=== PATIENT | male | born 1945 | race Caucasian/White ===

== ENCOUNTER 2016-09-08 10:54 | Outpatient (CLI) | payer MEDICARE, OTHER ==
[~2016-09-08] VITALS: Ht 172.7 cm; Wt 93.2 kg
--- NOTE | ~2016-09-08 | HEMODYNAMI ---
PATIENT:STACY QUESADA MEDICAL RECORD: [id number] : 47 LOCATION:[facility] ADMISSION DATE: 09/08/16 Generatedon:09/08/201614:25 Patient name: STACY QUESADA Patient #: [id number] SSN: DO B: 1945 Date of study: 09/08/2016 Page: Of Hemodynamic Procedure Report Patient Data Patient Demographics Procedure consent was obtained First Name: STACY Gender: Male Last Name: SANGITA : 1945 Patient #: [id number] Age: 70 year(s) Race: Unknown Additional ID: [id number] Contact details [address]: [address] [place] [address] State: [place] City: [place] Zip code: [address] Past Medical History Allergies Allergen Reaction Date Comments Reported Penicillins 09/08/2016 Admission Admission Data Admission Date: 09/08/2016 Admission Time: 10:54 Lab Results Lab Result Date: 09/08/2016 Lab Result Time: 0:00 Biochemistry Name Units Result Min Max BUN mg/dl 15 --(--*-)-- 7 18 Creatinine mg/dl 0.9 --(-*--)-- 0.6 1.3 CBC Name Units Result Min Max Hemoglobin g/dl 15.4 --(-*--)-- 13.5 17.5 Procedure Procedure Types Cath Procedure Diagnostic Procedure LHC [facility] w/Coronaries Miscellaneous Procedures Moderate Sedation up to 30 minutes Procedure Description Procedure Date Procedure Date: 09/08/2016 Procedure Start Time: 13:59 Procedure End Time: 14:23 Procedure Staff Name Function Víctor Gorman RT Scrub Derik Garcia RT Monitor Kelton Goodman MD Performing Physician Marisela Bowden RN Nurse Chago Ribeiro RT Monitor Procedure Data Cath Procedure Fluoroscopy Diagnostic fluoroscopy Total fluoroscopy Time: 6.8 time: 6.8 min min Diagnostic fluoroscopy Total fluoroscopy dose: 708 dose: 708 mGy mGy Contrast Material Contrast Material Type Amount (ml) Isovue 300 91 Entry Location Entry Primary Successful Side Size Upsize Upsize Entry Closure Alatorre ccessful Closure Location (Fr) 1 (Fr) 2 (Fr) Remarks Device Remarks Radial Right 6 Fr Mechanical artery Short Compression Estimated blood loss: 5 ml Diagnostic catheters Device Type Used For End Catheter Placement Terumo 5Fr Emory 110cm Procedure catheter Terumo 5Fr Ashley 110cm Procedure catheter Procedure Complications No complications Procedure Medications Medication Administration Route Dosage Oxygen NC 3 l/min Heparin Flush Bag added to field 2 bags (1000units/500ml NS) Lidocaine 2% added to field 20 Radial Cocktail added to field 1 syringe (Verapomil 2mg/Nitro 400mcg/Heparin 1500units) Versed I.V. 1 mg Fentanyl I.V. 50 mcg Radial Cocktail I.A. 1 syringe (Verapomil 2mg/Nitro 400mcg/Heparin 1500units) Versed I.V. 1 mg Fentanyl I.V. 50 mcg Versed I.V. 1 mg Fentanyl I.V. 50 mcg Hemodynamics Rest HGB: 15.4 (g/dl) Heart Rate: 64 (bpm) Pressure Samples Time Site Value (mmHg) Purpose Heart Use Rate(bpm) 14:06 LV 133/5,22 Snapshot 66 14:07 LV 113/14,14 Pullback 65 14:07 AO 107/70(87) Pullback 65 Gradients Valve Time Site 1 Site 2 Mean SEP/DFP Peak To Heart Use (mmHg) (sec/min) Peak Rate (mmHg) (bpm) Aortic 14:07 LV AO 10 14 6 65 113/14,14 107/70(87) Calculations Valve P-P Mean Valve Index Valve Source Name Gradient Area Flow (cm2) Aortic 6 10 6 10 Snapshots Pre Cath Intra NCS Post Cath Vital Signs Time Heart Resp SPO2 etCO2 BT2kvkp NIBP (mmHg) Rhythm Pain Sedatio n Rate (ipm) (%) (mmHg) (mmHg) Status Level (bpm) 13:48:36 58 26 100 0 0 141/87(107) NSR 0 (11) 10(A) , No pain 13:53:25 62 19 100 0 0 163/98(140) NSR 0 (11) 10(A) , No pain 13:57:45 60 15 100 0 0 153/100(137) NSR 0 (11) 10(A) , No pain 14:02:05 65 16 98 0 0 116/82(95) NSR 0 (11) 10(A) , No pain 14:06:13 56 18 96 0 0 108/77(84) NSR 0 (11) 9(A) , No pain 14:11:08 64 18 96 0 0 126/80(102) NSR 0 (11) 9(A) , No pain 14:15:18 67 19 98 0 0 137/78(94) NSR 0 (11) 9(A) , No pain 14:19:27 66 19 98 0 0 141/85(124) NSR 0 (11) 9(A) , No pain Medications Time Medication Route Dose Verified Delivered Reason Notes Effectiveness by by 13:47:32 Oxygen NC 3 l/min Kelton Marisela Per [facility] Ricci Bowden RN physician 13:51:04 Heparin Flush added 2 bags Kelton [facility] (1000[facility]/500ml field MD MENDOZA NS) 13:51:12 Lidocaine 2% added 20ml Kelton Martinezory used for to vial Rex Rex procedure field MD MENDOZA 13:51:19 Radial Cocktail added 1 Kelton Kelton used for (Verapomil to syringe [place] procedure 2mg/Nitro field MD MENDOZA 400mcg/Hepari 13:58:24 Versed I.V. 1 mg Kelton Marisela for sedation [facility]. Ricci Bowden RN, MD 13:58:31 Fentanyl I.V. 50 mcg Kelton Marisela for sedation St. Ricci Bowden RN, MD 14:01:28 Radial Cocktail I.A. 1 Kelton Kelton for (Verapomil syringe [place] Rex vasodilation 2mg/Taty MENDOZA MD 400mcg/Hepari 14:01:45 Versed I.V. 1 mg Kelton Marisela for sedation [facility]. Ricci Bowden RN, MD 14:01:55 Fentanyl I.V. 50 mcg Kelton Marisela for sedation [facility]. Ricci Bowden RN, MD 14:03:18 Versed I.V. 1 mg Kelton Marisela for sedation [facility]. Ricci Bowden RN, MD 14:03:26 Fentanyl I.V. 50 mcg Kelton Marisela for sedation [facility]. Ricci Bowden RN, MD Procedure Log Time Note 13:33:35 Víctor Gorman RT(R) (CV) sent for patient. Start room use. 13:34:16 Time tracking: Regular hours 13:34:23 Plan of Care:Hemodynamics will remain stable., Cardiac rhythm will remain stable., Comfort level will be maintained., Respiratory function will remain adequate., Patient/ family verbilizes understanding of procedure., Procedure tolerated without complication., Recovers from procedure without complications.. 13:41:15 Patient received from Pre/Post Procedure Room to CCL 1 Alert and oriented. Tansferred to table in Supine position. 13:41:17 Warm blankets applied, and christina hugger turned on for patient comfort. 13:41:18 Correct patient and procedure confirmed by team. 13:41:21 Signed procedure consent form obtained from patient. 13:41:26 ECG and BP/O2 sat monitors applied to patient. 13:47:21 Vital chart was started 13:47:32 Oxygen 3 l/min NC was administered by Marisela Bowden RN; Per physician; 13:51:04 Heparin Flush Bag (1000units/500ml NS) 2 bags added to field was administered by Kelton Goodman MD; used for procedure; 13:51:12 Lidocaine 2% 20ml vial added to field was administered by Kelton Goodman MD; used for procedure; 13:51:19 Radial Cocktail (Verapomil 2mg/Nitro 400mcg/Heparin 1500units) 1 syringe added to field was administered by Kelton Goodman MD; used for procedure; 13:52:56 Baseline sample Acquired. 13:53:00 Rhythm: sinus rhythm 13:53:02 Full Disclosure recording started 13:53:23 H&P Date Dictated: 08/31/2016 Within 30 days and on chart., H&P Addendum completed by physician on day of procedure. (MUST COMPLETE FOR ALL OUTPATIENTS). 13:53:42 Pre-procedure instructions explained to patient. 13:53:44 Pre-op teaching completed and patient verbalized understanding. 13:53:47 Family in patients room. 13:53:50 Patient NPO since Breakfast. 13:53:58 Patient allergic to Penicillins 13:54:02 Is the patient allergic to Iodine/contrast media? No. 13:54:05 Is patient on blood thinner?Yes 13:54:08 ACC The patient was administered the following blood thiners within the last 24 hours: ACCPlavix 13:54:12 Patient diabetic? No. 13:54:17 ----Pre-sedation anethsthesia assessment.---- 13:54:23 Previous problem with sedation/anesthesia? No ? 13:54:25 Snore? Yes 13:54:26 Sleep apnea? Yes 13:54:28 Deviated septum? No 13:54:29 Opens mouth fully? Yes 13:54:31 Sticks out tongue? Yes 13:54:34 Airway obstruction? No ? 13:54:41 Dentures? No ? 13:54:46 Pre procedure: right dorsailis pedis pulse 2+ Normal; easily identifiable; not easily obliterated 13:54:51 Modified Gutierrez's test Ulnar < 7 seconds 13:55:02 Patient pain scale 3/10 ?. 13:55:15 IV patent on arrival in left hand with 0.9% NaCl at [facility]. 13:55:55 Lab Result : Hemoglobin 15.4 g/dl 13:55:55 Lab Result : Creatinine 0.9 mg/dl 13:55:55 Lab Result : BUN 15 mg/dl 13:56:00 Lab results completed and on chart. 13:56:06 Right Radial & Right Groin area was prepped with chlora-prep and draped in sterile fashion 13:56:09 Alarms reviewed by R. N. 13:56:10 Sharps counted by scrub and verified by R.N. 13:56:55 Use device set Radial Dx 13:56:57 Acist Syringe opened to sterile field. 13:56:58 Medline Cath Pack opened to sterile field. 13:56:59 Terumo 6Fr Slender Glidesheath opened to sterile field. 13:56:59 Bag Decanter opened to sterile field. 13:57:00 St Melquiades 260cm J .035 wire opened to sterile field. 13:57:01 Acist Manifold opened to sterile field. 13:57:01 Acist Hand Control opened to sterile field. 13:57:02 Tegaderm 4 x 4 opened to sterile field. 13:57:03 MBrace Wrist Support opened to sterile field. 13:58:05 --------ALL STOP TIME OUT------ 13:58:05 Physician arrived 13:58:06 Final Timeout: patient, procedure, and site verified with staff and physician. All members of the team are in agreement. 13:58:09 Right Radial & Right Groin site verified by team. 13:58:17 Physical assessment completed. ASA score P 2 - A patient with mild systemic disease as per Kelton Goodman MD. 13:58:22 Sedation plan: IV Moderate Sedation Versed, Fentanyl 13:58:24 Versed 1 mg I.V. was administered by Marisela Bowden RN; for sedation; 13:58:31 Fentanyl 50 mcg I.V. was administered by Marisela Bowden RN; for sedation; 13:58:41 Procedure started. 13:59:49 Local anesthetic to right radial artery with Lidocaine 2% by eKlton Goodman MD.INITIAL ACCESS ONLY 14:01:08 A 6 Fr Short sheath was inserted into the Right Radial artery 14:01:28 Radial Cocktail (Verapomil 2mg/Nitro 400mcg/Heparin 1500units) 1 syringe I.A. was administered by Kelton Goodman MD; for vasodilation; 14:01:45 Versed 1 mg I.V. was administered by Marisela Bowden RN; for sedation; 14:01:48 A Terumo 5Fr Emory 110cm catheter was advanced over the wire and used for Procedure. 14:01:55 Fentanyl 50 mcg I.V. was administered by Marisela Bowden RN; for sedation; 14:02:42 Zero performed for pressure channel P1 14:03:18 Versed 1 mg I.V. was administered by Marisela Bowden RN; for sedation; 14:03:26 Fentanyl 50 mcg I.V. was administered by Marisela Bowden RN; for sedation; 14:05:01 RCA angiography performed. 14:06:50 LV hemodynamics recorded. 14:06:52 LV gram done using MOLINA 14:06:58 EF : 45 % 14:07:41 Catheter removed. 14:07:59 unable to cannulate the LCA 14:08:19 A Terumo 5Fr Ashley 110cm catheter was advanced over the wire and used for Procedure. 14:09:55 Catheter removed. 14:10:08 UNABLE TO CANNULATE 14:10:35 Cordis 6FR XBLAD 3.5 guide catheter opened to sterile field. 14:12:54 LCA angiography performed. 14:15:38 Terumo TR Band Standard opened to sterile field. 14:16:21 Sheath removed intact; hemostasis achieved with Mechanical Compression to the Right Radial artery. 14:16:27 Procedure ended.(Physican Out) 14:16:52 Fluoroscopy time 06.80 minutes. 14:16:58 Fluoroscopy dose: 708 mGy 14:16:58 Flurop Dose total: 708 14:17:07 Contrast amount:Isovue 300 91ml. 14:17:09 Sharps counted by scrub and verified by R.N. 14:20:04 TR band inflated with 9cc of air. 14:20:11 Insertion/operative site no bleeding no hematoma. 14:20:52 Post right radial artery:stable 14:21:39 Post Procedure Pulses reassessed and unchanged 14:21:52 Post-procedure physical assessment completed. ASA score P 2 - A patient with mild systemic disease as per Kelton Goodman MD. 14:21:59 Post procedure rhythm: unchanged. 14:22:01 Estimated blood loss: 5 ml 14:22:03 Patient needs reinforcement of post procedure teaching. 14:22:03 Post procedure instruction explained to patient.Patient verbalizes understanding. 14:22:15 Procedure type changed to Cath procedure, Diagnostic procedure, LHC, LHC w/Coronaries, Miscellaneous Procedures, Moderate Sedation up to 30 minutes 14:23:08 Procedure and supply charges have been captured, reviewed, submitted and are correct. 14:23:11 Procedure Complication : No complications 14:23:13 See physician's report for complete and final results. 14:23:13 Vital chart was stopped 14:23:16 Report given to Pre/Post Procedure Room. 14:23:19 Patient transfered to Pre/Post Procedure Room with Stretcher. 14:23:21 Full Disclosure recording stopped 14:23:21 Procedure ended. 14:23:25 End room use (Document Last) 14:24:36 Derik Garcia RT(R) was relieved by Chago Ribeiro RT(R) as monitoring person Device Usage Item Name Manufacture Quantity Catalog Hospital Part Current Minimal Lot# / Number Charge Number Stock Stock Serial# Code Acist Acist 1 51557 214361 876490 383047 20 [employer] Medline Cardinal 1 [id number] 757956 29308 899627 5 Cath Pack Health Bag Microtek 1 2001 229683 99515 612381 5 [employer] Terumo 6Fr Terumo 1 [id number] 787099 594968 074003 40 Slender [facility] [address] Mel[facility] 1 908307 555405 398727 695283 30 260cm J .035 wire Acist Hand Acist 1 89482 908615 835073 417057 5 Control [employer] Inc Acist Acist 1 81394 127065 932061 347462 5 Manifold [employer] Inc Tegaderm 4 3M 1 1626W 447753 009956 973076 5 x 4 MBrace Advanced 1 140-0250-00 965665 54948 384728 5 Wrist Vascular [employer] Terumo 5Fr Terumo 1 40-0750 224859 946240 929130 5 Emory 110cm catheter Terumo 5Fr Terumo 1 40-8648 846061 556049 218697 5 Ashley 110cm catheter Cordis 6FR Cardinal 1 [id number] 903177 541648 962735 10 XBLAD 3.5 Health guide catheter Terumo TR Terumo 1 [id number] 082669 479753 960366 40 Band Standard Signature Audit [place] Stage Time Signature Unsigned Intra-Procedure 09/08/2016 Chago Ribeiro 2:24:58 PM RT(R) Signatures Monitor : Derik Garcia RT Signature : Date : Time : Monitor : Chago Ribeiro RT Signature : Date : Time : [facility] [address] [place] [address]
[2016-09-08 12:11] VITALS: BP 150/86; Ht 172.7 cm; Wt 93.2 kg
[2016-09-08] MEDS ORDERED: NORVASC5 MG PO (12:16)
[2016-09-08 12:17] LABS: CALC OSMOLALITY 278 mosm/kg (275-300); CALCIUM 9.2 mg/dL (8.5-10.1); CARBON DIOXIDE 27.4 mmol/L (21.0-32.0); CHLORIDE - SERUM 104 mmol/L (98-107); CREATININE - SERUM 0.9 mg/dL (0.6-1.3); GLUCOSE 94 mg/dL (74-106); POTASSIUM - SERUM 4.3 mmol/L (3.5-5.1); SODIUM 139 mmol/L (136-145); UREA NITROGEN 15 mg/dL (7-18); eGFR NON AFRICAN AMERICAN 89 mL/min (90-120)
[2016-09-08] MEDS ORDERED: LAMICTAL200 MG PO (12:17)
[2016-09-08] MEDS ORDERED: BETAPACE 80 MG80 MG PO (12:17)
[2016-09-08 12:18] LABS: BASOPHILS 0.3 % (0-2); EOSINOPHILS 3.5 % (0-7); HEMATOCRIT 44.2 % (42.0-54.0); HEMOGLOBIN 15.4 g/dL (13.5-17.5); IMMATURE GRANULOCYTES 0.2 % (0-5); LYMPHOCYTES 25.6 % (15-50); MCH 32.6 pg (26.0-34.0); MCHC 34.8 g/dL (31.0-37.0); MCV 93.6 fL (80.0-100.0); NEUTROPHILS 59.4 % (40-80); PLATELET COUNT 179 10x3/uL (130-400); RBC 4.72 10x6/uL (4.20-6.10); RDW 11.8 % (11.5-14.5); WBC 6.3 10x3/uL (4.8-10.8)
[2016-09-08] MEDS ORDERED: NITROSTAT0.4 MG SL (12:18)
[2016-09-08] MEDS ORDERED: BUPROPION XL300 MG PO (12:18)
[2016-09-08] MEDS ORDERED: PLAVIX75 MG PO (12:19)
[2016-09-08] MEDS ORDERED: XANAX0.25 MG PO (12:20)
[2016-09-08] MEDS ORDERED: LISINOPRIL10 MG PO (12:21)
[2016-09-08] MEDS ORDERED: FLOMAX0.4 MG PO (12:21)
[2016-09-08] MEDS ORDERED: LIVALO2 MG PO (12:22)
[2016-09-08] MEDS ORDERED: BAYER CHEWABLE81 MG PO (12:23)
[2016-09-08] MEDS ORDERED: FLOVENT DI50 MCG/DIS INH (12:23)
[2016-09-08] MEDS ORDERED: MULTIPLE VITAMI1 TA1 PO (12:24)
[2016-09-08] MEDS ORDERED: PROBIOTIC1 EAC1 PO (12:24)
[2016-09-08] MEDS ORDERED: FISH OIL 1,0001 CA1 PO (12:25)
[2016-09-08] MEDS ORDERED: CO Q-10150 MG PO (12:25)
--- NOTE | 2016-09-08 14:45 | NUR ---
RESTING WITH EYES CLOSED, AT SIDE, TR BAND INTACT
--- NOTE | 2016-09-08 15:15 | NUR ---
TR BAND INTACT, NO BLEEDING
--- NOTE | 2016-09-08 16:40 | NUR ---
IV D'C WITH CATH TIP INTACT, WRITTEN AND VERBAL INSTRUCTIONS GIVEN TO PT AND - UNDERSTOOD. DENIES FURTHUR NEEDS. TR BAND OFF WITH BANDAID IN PLACE- NO BLEEDING-BRACE APPLIED TO RIGHT HAND.
--- NOTE | 2016-09-09 12:52 | OP ---
PATIENT NAME: STACY QUESADA MEDICAL RECORD: [id number] :47 LOCATION:D.[facility] ADMISSION DATE: SURGEON: JEANNINE HARRINGTON MD DATE OF OPERATION: 09/08/2016 PROCEDURE: Left heart catheterization, selective coronary angiography, right femoral artery approach. CATHETERS: A 5-[place]izen [place] sheath via radial approach catheters, radial catheter, [place] and pigtail as well as XBLAD. The procedure was tolerated and the patient returned to giordano. Sheath was removed. TR band was placed. FINDINGS: Left ventriculography in 30-degree MOLINA view: Normal wall motion and normal systolic function. CORONARY ANATOMY: Left main: Left main short vessel, free of disease. LAD: The takeoff of the first diagonal has about 80% stenosis. The diagonal itself appears to be a reasonable target with about 80% stenosis. CIRCUMFLEX: Distal to the previous stenting shows about 80% stenosis. RIGHT CORONARY ARTERY: An area of previous stenting shows about 80% stenosis. IMPRESSION: Multivessel coronary artery disease, normal LV function. Given, multiple episodes of restenosis, suspect best served via coronary bypass grafting for long-term fix. Dr. Claros will be consulted for that purpose. TRANSINT:[id number] Voice Confirmation ID: [id number] DOCUMENT ID: [id number] JEANNINE HARRINGTON MD at 1252 CC: [id number] DICTATION DATE: 09/08/16 142 APIARIST: 09/09/16 0101 DEP CLI 09/08/16 [facility] [address] [place] [address]
== END 2016-09-08 16:50 | disposition home or self-care (01) ==
LOC: D.CATH 10:54
PROVIDERS: Internal Medicine Interventional Cardiology
DX: I25.10 Atherosclerotic heart disease of native coronary artery without angina pectoris (principal); T82.855A Stenosis of coronary artery stent, initial encounter

== ENCOUNTER → 2016-09-22 15:06 | Outpatient (CLI) | payer MEDICARE, OTHER ==
[2016-09-08 12:11] VITALS: BMI 31.2
[~2016-09-22 15:06] MED LIST: BAYER CHEWABLE81 MG PO; BETAPACE 80 MG80 MG PO; BUPROPION XL300 MG PO; CO Q-10150 MG PO; FISH OIL 1,0001 CA1 PO; FLOMAX0.4 MG PO; FLOVENT DI50 MCG/DIS INH; LAMICTAL200 MG PO; LISINOPRIL10 MG PO; LIVALO2 MG PO; MULTIPLE VITAMI1 TA1 PO; NITROSTAT0.4 MG SL; NORVASC5 MG PO; PLAVIX75 MG PO; PROBIOTIC1 EAC1 PO; XANAX0.25 MG PO
== END | disposition home or self-care (01) ==
LOC: D.LAB 15:06 → D.US 15:30
DX: I65.23 Occlusion and stenosis of bilateral carotid arteries (principal); Z01.812 Encounter for preprocedural laboratory examination

== ENCOUNTER 2016-10-04 05:00 | Inpatient (IN) | payer MEDICARE, OTHER ==
[2016-10-01 14:08] LABS: BASOPHILS 0.5 % (0-2); EOSINOPHILS 1.5 % (0-7); HEMATOCRIT 43.2 % (42.0-54.0); IMMATURE GRANULOCYTES 0.2 % (0-5); LYMPHOCYTES 26.2 % (15-50); MCH 32.9 pg (26.0-34.0); MCHC 34.7 g/dL (31.0-37.0); MCV 94.7 fL (80.0-100.0); MONOCYTES 13.3 % (2-11); NEUTROPHILS 58.3 % (40-80); PLATELET COUNT 187 10x3/uL (130-400); RBC 4.56 10x6/uL (4.20-6.10); RDW 11.9 % (11.5-14.5)
[2016-10-01 14:15] LABS: APPEARANCE CLEAR (CLEAR); BILIRUBIN NEGATIVE (NEGATIVE); COLOR YELLOW (YELLOW); GLUCOSE NEGATIVE (NEGATIVE); KETONE NEGATIVE (NEGATIVE); LEUKOCYTE ESTERASE NEGATIVE (NEGATIVE); NITRITE NEGATIVE (NEGATIVE); PROTEIN NEGATIVE (NEGATIVE); UROBILINOGEN NORMAL (NORMAL)
[2016-10-01 14:20] LABS: INR 0.97 (0.85-1.17); PROTIME 12.8 SECONDS (11.6-15.0)
[2016-10-01 14:21] LABS: APTT 33.4 SECONDS (22.8-39.4)
[2016-10-01 14:35] LABS: ALBUMIN 3.8 g/dL (3.4-5.0); ALKALINE PHOSPHATASE 58 U/L (46-116); ALT (SGPT) 35 U/L (10-68); BILIRUBIN - TOTAL 0.55 mg/dL (0.2-1.3); CALC OSMOLALITY 276 mosm/kg (275-300); CARBON DIOXIDE 29.6 mmol/L (21.0-32.0); CHLORIDE - SERUM 102 mmol/L (98-107); CHOLESTEROL, TOTAL 165 mg/dL (0-200); GLUCOSE 99 mg/dL (74-106); PHOSPHOROUS 2.7 mg/dL (2.5-4.9); POTASSIUM - SERUM 4.2 mmol/L (3.5-5.1); PROTEIN - SERUM 6.9 g/dL (6.4-8.2); SODIUM 138 mmol/L (136-145); T4 THYROXIN - FREE 1.08 ng/dL (0.76-1.46); THYROID STIMULATING HORMONE 1.38 uIU/mL (0.36-3.74); UREA NITROGEN 15 mg/dL (7-18); URIC ACID 4.4 mg/dL (2.6-7.2); eGFR NON AFRICAN AMERICAN 79 mL/min (90-120)
[2016-10-01 14:36] LABS: HEMOGLOBIN A1C 4.9 % (4.8-6.0)
[2016-10-01 15:48] LABS: COLD SCREEN @ 4 DEGREES NEGATIVE (NEGATIVE); COLD SCREEN ROOM TEMP NEGATIVE (NEGATIVE)
--- NOTE | 2016-10-02 12:08 | HP ---
PATIENT: STACY QUESADA MEDICAL RECORD: [id number] ACCOUNT: [id number] LOCATION[facility] : 47 ADMISSION DATE: 10/04/16 HISTORY AND PHYSICAL EXAMINATION STACY Marrufo (70yo, M) ID# [id number]. Date/Time09/22/2016 01:38XFYWS04 1945[facility] Dept.[facility] ClinicProviderEDGLENN NIELSON MDInsuranceMed Primary: [place]) Insurance # : [id number] Referring Provider Name : SOLOMON IBRAHIM Employer Name : UNKNOWN Med Secondary: [employer] (MEDICARE SUPPLEMENT) Insurance # : [id number] Employer Name : UNKNOWN Prescription: ORX - Member is eligible. Chief Complaint Coronary artery disease Patient's Care Team Referring Provider (): SOLOMON IBRAHIM: [address] , [facility] [address], [place] [address], , Metal Temperer: JEANNINE HARRINGTON MD Patient's Pharmacies [facility] (ERX): [address] [place] [address], , Vitals BP:110/80 s itting R arm 09/22/2016 01:33 pm 112/70 L arm 09/22/2016 01:34 pmHR:60R/R 09/22/2016 01:34 pmHt:5 ft 8 in 09/22/2016 01:33 pmWt:207 lbs 09/22/2016 01:32 pmNotes:murmur 09/22/2016 01:34 pmBMI:31.5 09/22/2016 01:33 pmAllergies PENICILLINSMedications ALPRAZolam 0.25 mg vkppew50/28/17 filledPRESCRIPTION SOLUTIONSamLODIPine 5 mg nlojgi77/27/17 filledPRESCRIPTION SOLUTIONSAspir- enteredCindy BrownbuPROPion HCl XL 300 mg 24 hr tablet, extended qhrfrah83/28/17 filledPRESCRIPTION SOLUTIONSclopidogrel 75 mg /28/17 filledPRESCRIPTION SOLUTIONSFish Oil09/22/16 enteredCindy Brownfluticasone 50 mcg/actuation nasal spray,rareujpwhh28/27/17 filledPRESCRIPTION SOLUTIONSisosorbide mononitrate ER 30 mg tablet,extended release 24 hr08/13/16 filledPRESCRIPTION SOLUTIONSlamoTRIgine 200 mg kymwsa56/28/17 filledPRESCRIPTION SOLUTIONSlisinopril 10 mg /27/17 filledPRESCRIPTION LHCFGPLVYzwqaisxmdhij29/07/17 enteredCindy Brownnitroglycerin 400 mcg/spray drslmcttoevg81/21/17 filledPRESCRIPTION EOEYIFZVQTsrqzejwz05/07/17 enteredCindy Brownsotalol 80 mg ygezie30/27/17 filledPRESCRIPTION SOLUTIONStamsulosin 0.4 mg xitjppo26/28/17 filledPRESCRIPTION SOLUTIONSProblems Reviewed Problems Aortic stenosis, non-rheumatic - Onset: 09/22/2016 Coronary atherosclerosis - Onset: 09/20/2016 Family History Discussed Family History Father- Cirrhosis of liverMother- Heart failureSocial History Discussed Social History Cardiology Family history of heart disease?: Y Smoking Status: Former smoker High Cholesterol: Y High blood pressure: Y HISTORY AND PHYSICAL [id number] STACY QUESADA Diabetes: N Alcohol intake: Occasional Occupation: retired Is blood transfusion acceptable in an emergency?: Y Surgical History Reviewed Surgical History Other - fractured left raduis and ulna Other - laser eye surgery Other - PTCA/stent 2001, 2002, 2007, 2016 Other - cholecystectomy Other - sinus surgery Past Medical History Discussed Past Medical History Angioplasty (balloon): Y Chest Pain: Y Coronary Artery Disease: Y Epilepsy: Y Heart Disease: Y Heart stents: Y High Blood Pressure: Y Hyperlipidemia: Y Seizures/Epilepsy: Y Notes: Bipolar Documents for Discussion N/A Screening None recorded. HPI Coronary Artery Disease F/U Reported by patient. Severity: chest discomfort with household activities/yard work ("chest pain at rest"); has used Nitroglycerin; "PTCA/stent 07/2016 still having problems." Associated Symptoms: chest pain with exertion ("at rest too"); dyspnea with exertion severe occlusive coronary artery disease Mild aortic stenosis ROS Patient reports exercise intolerance but reports no fever, no night sweats, no significant weight gain, and no significant weight loss. He reports nose/sinus problems but reports no frequent nosebleeds. He reports chest pain on exertion and shortness of breath when lying down but reports no arm pain on exertion, no shortness of breath when walking, no palpitations, and no known heart murmur. He reports shortness of breath but reports no cough, no wheezing, and no coughing up blood. He reports no dry eyes, no irritation, and no vision change. He reports no difficulty hearing and no ear pain. He reports no sore throat, no bleeding gums, no snoring, no dry mouth, no mouth ulcers, no oral abnormalities, and no teeth problems. He reports no jugular vein distension and no swollen glands. He reports no abdominal pain, no vomiting, normal appetite, no diarrhea, not vomiting blood, no nausea, and no constipation. He rep o rts no incontinence, no difficulty urinating, no hematuria, and no increased frequency. He reports no muscle aches, no muscle weakness, no arthralgias/joint pain, no back pain, and no swelling in the extremities. He reports no abnormal mole, no jaundice, a nd no rashes. He reports no loss of consciousness, no weakness, no numbness, no seizures, no dizziness, and no headaches. He reports no depression, no sleep disturbances, feeling safe in relationship, and no alcohol abuse. He reports no fatigue. He report s no swollen HISTORY AND PHYSICAL [id number] COTTON,STACY W glands and no bruising. He reports no runny nose, no sinus pressure, no itching, no hives, and no frequent sneezing. ROS as noted in the HPI Physical Exam Patient is a 70-year-old male. Constitutional: General Appearance well nourished and developed and healthy-appearing. Level of Distress NAD. Ambulation ambulating normally. Cardiovascular: Apical Impulse not displaced or no thrill. Heart Auscultation normal s1 and s2, no rubs or gallops, and RRR and murmur (aortic stenosis). Neck Vessels transmitted aortic murmur or carotid bruits. Arterial Pulses no abdominal aorta bruits, femoral bruits, or popliteal bruits and 2+ bilateral, carotid 2+ bilateral, femoral 2+ bilateral, popliteal 2+ bilateral, and dorsalis pedis 2+ bilateral. Edema no edema or varicosities. Lungs: Repiratory Effort no dyspnea. Percussion no hyperresonance or dullness or flatness. Auscultation no wheezing, rhonchi, or rales / crackles and breathing sounds normal, good air movement, and CTA except as noted. Abdomen: Bowl Sounds normal. Inspection and Palpation no tenderness, guarding, masses, or rebound tenderness and soft and non-distended. Liver non-tender and no hepatomegaly. Spleen non-tender and no splenomegaly. Hernia none palpable. Musculoskeletal System: Gait And Stance normal gait and stance. Digits and Nails normal nails and no cyanosis. Neurologic: Cranial Nerves grossly intact. Reflexes DTRs 2+ bilaterally throughout. Sensation grossly intact. Lymph Nodes: Lymph Nodes no cervical LAD, supraclavicular LAD, axillary LAD, or inguinal LAD. Eyes: Lids and Conjunctivae no discharge or pallor and non-injected. Pupils PERRLA. Cornea grossly intact. EOM EOMI. Lens clear. Sclerae non-icteric. Neck: Neck no masses or enlarged lymph nodes and supple, trachea midline, and carotid bruits (or transmitted aortic murmur). Thyroid no enlargement or nodules and non-tender. Skin: Inspection and Palpation no rash, lesions, ulcers, jaundice, or abnormal nevi. Assessment / Plan occlusive coronary artery disease Mild aortic stenosis 1. Coronary atherosclerosis I25.118: Atherosclerotic heart disease of [place] coronary artery with other forms of angina pectoris 2. Aortic stenosis, non-rheumatic I35.0: Nonrheumatic aortic (valve) stenosis Return to Office None recorded. HISTORY AND PHYSICAL [id number] STACY QUESADA EDWARD MD at 1208 CC: [id number] DICTATION DATE: 09/22/[address] ENGINEER: ARETHA 09/29/16 1409 [address] [place] [id number] [place] [id number]
[2016-10-04] VITALS (30 sets, daily range): BP systolic 95–137; BP diastolic 53–73; BMI 30.7; BMI 34.4
[~2016-10-04] VITALS: Ht 172.7 cm; Wt 102.2 kg
[2016-10-04 08:31] LABS: PLT FUNCT.(P2Y12) PLAVIX 238 PRU (194-418)
[2016-10-04 16:07] LABS: HEMOGLOBIN 8.2 g/dL (13.5-17.5); MCH 32.2 pg (26.0-34.0); MCHC 34.2 g/dL (31.0-37.0); MCV 94.1 fL (80.0-100.0); MEAN PLATELET VOLUME 8.5 fL (7.4-10.4); RBC 2.55 10x6/uL (4.20-6.10); RDW 11.8 % (11.5-14.5); WBC 9.3 10x3/uL (4.8-10.8)
[2016-10-04 16:18] LABS: CALC OSMOLALITY 291 mosm/kg (275-300); CARBON DIOXIDE 22.3 mmol/L (21.0-32.0); CHLORIDE - SERUM 114 mmol/L (98-107); CREATININE - SERUM 0.7 mg/dL (0.6-1.3); GLUCOSE 107 mg/dL (74-106); INR 1.83 (0.85-1.17); POTASSIUM - SERUM 3.2 mmol/L (3.5-5.1); PROTIME 21.1 SECONDS (11.6-15.0); SODIUM 147 mmol/L (136-145); UREA NITROGEN 12 mg/dL (7-18); eGFR NON AFRICAN AMERICAN > 90 mL/min (90-120)
[2016-10-04 16:19] LABS: APTT 45.7 SECONDS (22.8-39.4)
[2016-10-04 16:24] LABS: CALCIUM 6.4 mg/dL (8.5-10.1); PLATELET COUNT 88 10x3/uL (130-400)
[2016-10-04 16:44] LABS: PLATELET ESTIMATE DECREASED
--- NOTE | 2016-10-04 16:47 | NUR ---
RECIEVED PT TO ROOM. ASSESSMENT PER FLOWSHEET. ABGS DONE.
--- NOTE | 2016-10-04 17:30 | NUR ---
DR NIELSON HERE. NEW ORDERS RECIEVED.
--- NOTE | 2016-10-04 18:15 | NUR ---
DR NIELSON HERE NEW ORDERS RECIEVED. 400 CC OF ALBUMIN. 200 PLASMALYTE 1GM CACL. INFUSING.
--- NOTE | 2016-10-04 19:30 | NUR ---
REC'D TO CARE, SOLE TIER PER FLOWSHEET. PT ON MECH VENT VIA OETT - SEE FLOWSHEET. PT S/P CABG, STILL SLEEPY. R IJ SWAN - AUDREY TO MONITOR - SEE FLOWSHEET. IVF INFUSING TO PROX INF PORT - WILL TITRATE PER MD ORDER. R DLSC, DSG C/D/I WITH BURETROL INFUSING. MIDSTERNAL SUBSTERNAL AND R LEG DSGS NOTED. CT X 3 TO 20CM SXN, PATENT WITH NO AIR LEAK NOTED. CRITICORE MOJICA PATENT AND DRAINING CLEAR, YELLOW URINE. B/L SOFT WRIST RESTRAINTS PER ORDER, WILL CONT 1:1 NURSING CARE, ALARMS ON.
--- NOTE | 2016-10-04 19:37 | NUR ---
ABGS PER ORDER, K+ COVERED PER S/S, OTHER VALUES WNL .
[2016-10-04 20:53] LABS: HEMOGLOBIN 9.5 g/dL (13.5-17.5)
[2016-10-04 20:55] LABS: APTT 42.2 SECONDS (22.8-39.4); INR 1.48 (0.85-1.17); PROTIME 17.8 SECONDS (11.6-15.0)
--- NOTE | 2016-10-04 21:01 | NUR ---
NEW LAB RESULTS, CT OUTPUT AND PT C/O BLADDER SPASMS. NEW ORDERS REC'D.
--- NOTE | 2016-10-04 23:12 | NUR ---
REASSESSMENT PER FLOWSHEET, NO ACUTE CHANGES. TEMP CONT TO BE ELEVATED, ROOM TEMP ADJUSTED AND COOL CLOTH CLOTH TO FOREHEAD. NO OTHER ACUTE CHANGES. CONT 1:1 NURSING CARE.
--- NOTE | 2016-10-04 23:20 | NUR ---
VENT TO CPAP - PT RR 18 UNLABORED.
[2016-10-05] VITALS (90 sets, daily range): BP systolic 89–130; BP diastolic 47–91; Ht 172.7 cm; Wt 102.2 kg
--- NOTE | 2016-10-05 00:08 | NUR ---
ABGS DRAWN. PT ON CPAP X 1 HR. PRN TYLENOL GIVEN PER MD ORDER. PT DENIES BLADDER PAIN.
--- NOTE | 2016-10-05 00:16 | NUR ---
K+ 3.8 - COVERAGE PER S/S. PT POX 91-94%, CONT ON CPAP AT THIS TIME.
--- NOTE | 2016-10-05 01:39 | NUR ---
STATUS REPORT AND ABGS CALLED TO DR. NIELSON. NEW ORDERS REC'D FOR 2 UNIT PRBCS, 1 AMP CACL OVER 1 HOUR AND 1 AMP BICARB. LEVOPHED BACK TO 30ML/HR AND WILL WEAN TOLERATED.
--- NOTE | 2016-10-05 01:45 | NUR ---
BEGIN UNIT #1 OF 2 UNITS PRBC - PER MD ORDER, PER HOSPITAL POLICY - SEE TRANSFUSION SHEETS.
--- NOTE | 2016-10-05 02:00 | NUR ---
UNIT 1 PRBC COMPLETE, NO SIGN OF ADVERSE RXN - UNIT #2 STARTED.
--- NOTE | 2016-10-05 02:15 | NUR ---
UNIT #2 PRBC INFUSING, NO SIGN OF ADVERSE RXN.
--- NOTE | 2016-10-05 03:16 | NUR ---
REASSESSMENT PER FLOWSHEET, NO ACUTE CHANGES. STERILE DSG CHANGE TO CT X 3 AND TMP WIRE SITES - NO SWELLING OR ACTIVE BLEEDING NOTED. PRBCS CONT WITHOUT ADVERSE RXN..
--- NOTE | 2016-10-05 03:38 | NUR ---
PRBCS COMPLETE, NO SIGN OF ADVERSE RXN. LINE FLUSHED AND SL'D. WEANING LEVOPHED TOLERATED.
--- NOTE | 2016-10-05 04:47 | NUR ---
ON CPAP, NO SIGN OF DISTRESS. RR 20 UNLAB.
--- NOTE | 2016-10-05 05:27 | NUR ---
ABGS RESULTED, NIF AND VC NOT WNL. WILL CONT ON CPAP FOR NOW. NO SIGN OF DISTRESS.
[2016-10-05 06:06] LABS: HEMATOCRIT 30.5 % (42.0-54.0); HEMOGLOBIN 10.6 g/dL (13.5-17.5); MCH 31.5 pg (26.0-34.0); MCHC 34.8 g/dL (31.0-37.0); MEAN PLATELET VOLUME 8.8 fL (7.4-10.4); RDW 14.6 % (11.5-14.5); WBC 8.9 10x3/uL (4.8-10.8)
[2016-10-05 06:07] LABS: MCV 90.5 fL (80.0-100.0); RBC 3.37 10x6/uL (4.20-6.10)
[2016-10-05 06:19] LABS: ALBUMIN 3.4 g/dL (3.4-5.0); BILIRUBIN - TOTAL 1.5 mg/dL (0.2-1.3); CARBON DIOXIDE 26.7 mmol/L (21.0-32.0)
[2016-10-05 06:24] LABS: ANION GAP 12.5 mmol/L (8-16); CALCIUM 8.8 mg/dL (8.5-10.1); CREATININE - SERUM 1.2 mg/dL (0.6-1.3); POTASSIUM - SERUM 4.2 mmol/L (3.5-5.1)
--- NOTE | 2016-10-05 06:38 | NUR ---
DR. NIELSON NOTIFIED OF AM LAB AND ABG, NO NEW ORDERS.
--- NOTE | 2016-10-05 07:00 | NUR ---
ASSESSMENT PER FLOWSHEET. AWAKE AND FOLLOWS COMMANDS.
--- NOTE | 2016-10-05 08:15 | NUR ---
DR NIELSON HERE. NEW ORDERS OBTAINED AND LASIX ORDERED. WILL MONITOR URINE OUTPUT Q1 HOUR VIA CRITICORE.
--- NOTE | 2016-10-05 11:00 | NUR ---
REASSESSED. NO CHANGES NOTED.
--- NOTE | 2016-10-05 12:30 | NUR ---
DR NIELSON HERE. OK TO START [facility] ASSISTANT FOR PAIN.
--- NOTE | 2016-10-05 12:30 | NUR ---
DR NIELSON HERE. NEW ORDERS OBTAINED. WILL MONITOR URINE OUTPUT Q 1 HOUR VIA CRITICORE.
--- NOTE | 2016-10-05 18:27 | NUR ---
VENT CHANGES PER DR NIELSON. SIMV RATE 6, TV 700 PS 10 PEEP 10 FIO2 40 PERCENT. CONTINUE MORPHINE AERIAL INSTALLER. CONSULT DR CAAL WHICH DR NIELSON WILL CALL.
--- NOTE | 2016-10-05 19:18 | NUR ---
REC'D TO CARE, BEDSIDE REPORT DONE. [facility]IA [facility] - SEE FLOWSHEET. IVFS INFUSING TO R IJ SG, DSG C/D/I - SEE FLOWSHEET, MORPHINE MACHINE I CUTTER NEEDED, PT ABLE TO NOD AND CONVEY NEEDS. R DLSC, DSG C/D/I, BURETROL AT KVO. R RADIAL A-LINE, FLUSHED AND ZEROED WITH GOOD WAVE FORM. OGT TO LIWS, BROWN/WHITE DRAINAGE NOTED. CRITICORE MOJICA PATENT AND DRAINING HAZY YELLOW URINE. PPP X 4 - DSGS NOTED. TPM WIRES SECURED TO SUBSTERNAL DSG - VVI 60, SENSING. B/L SOFT WRIST RESTRAINTS ON PER MD ORDER. ALARMS ON - WILL CONT 1:1 NURSING CARE.
--- NOTE | 2016-10-05 19:51 | NUR ---
DR. CAAL IN TO SEE PT, PT ANSWERING QUESTIONS APPROP. NEW ORDERS REC'D.
--- NOTE | 2016-10-05 20:12 | NUR ---
BLOOD CULTURE DRAWN FROM PROXIMAL (WHITE) PORT OF R DLSC - PER HOSPITAL POLICY WITH NEUROLOGY PHYSICIAN ASSISTANT AT BS.
--- NOTE | 2016-10-05 21:03 | NUR ---
NO VISITORS, PT REPOSITIONED UP IN BED TO L SIDE, ROM DONE. EXPLAINED TO PT IMPORTANCE OF TURNING FOR LUNGS AND SKIN.
--- NOTE | 2016-10-05 21:39 | NUR ---
ABGS RESULTED, K+ 3.6 - COVERAGE PER SS. PT RESTING QUIETLY, RR 14.
--- NOTE | 2016-10-05 23:06 | NUR ---
REASSESSMENT PER FLOWSHEET, NO ACUTE CHANGES. UPDATED OVER THE PHONE.
--- NOTE | 2016-10-05 23:54 | NUR ---
TEMP 38.5 - TYLENOL SUPP MI PER MD ORDER.
[2016-10-06] VITALS (94 sets, daily range): BP systolic 11–130; BP diastolic 53–766
--- NOTE | 2016-10-06 01:04 | NUR ---
PT REPOSITIONED UP IN BED TO R SIDE. ORAL CARE DONE. PT COOPERATIVE, FABRICATION TECHNICIAN DOSE ADMIN PER PT REQUEST, POINTING TO INCISIONAL PAIN. WILL CONT CLOSE MONITORING.
--- NOTE | 2016-10-06 02:48 | NUR ---
ABGS RESULTED, K+ 3.6 - COVERAGE PER S/S - SEE REASSMENT, NO ACUTE CHANGES. NO SIGN OF DISTRESS.
--- NOTE | 2016-10-06 05:09 | NUR ---
ORAL CARE DONE. PT REPOSITIONED UP IN BED TO L SIDE. [employer] [place] MACHINE TENDER DOSE GIVEN FOR C/O PAIN. HEELS BRIDGED AND ARMS ELEVATED..
[2016-10-06 05:57] LABS: HEMATOCRIT 28.9 % (42.0-54.0); HEMOGLOBIN 10.2 g/dL (13.5-17.5); MCH 32.4 pg (26.0-34.0); MCHC 35.3 g/dL (31.0-37.0); MCV 91.7 fL (80.0-100.0); RBC 3.15 10x6/uL (4.20-6.10); RDW 15.3 % (11.5-14.5)
--- NOTE | 2016-10-06 06:00 | NUR ---
NO VISITORS, B/P ELEVATED, PT RESTLESS, REPOSITIONED TO BACK - REPORTS ADEQUATE RELIEF OF DISCOMFORT. WILL CONT CLOSE MONITORING. AM LAB PENDING.
[2016-10-06 06:06] LABS: WBC 11.7 10x3/uL (4.8-10.8)
[2016-10-06 06:28] LABS: ANION GAP 9.3 mmol/L (8-16); CALCIUM 9.1 mg/dL (8.5-10.1); CARBON DIOXIDE 28.6 mmol/L (21.0-32.0); CREATININE - SERUM 1.1 mg/dL (0.6-1.3); POTASSIUM - SERUM 3.9 mmol/L (3.5-5.1); PROTEIN - SERUM 5.2 g/dL (6.4-8.2)
--- NOTE | 2016-10-06 07:00 | NUR ---
ASSESSMENT PER FLOWSHEET. CONT TO BE INTUBATED.
--- NOTE | 2016-10-06 08:00 | NUR ---
DRSG CHANGED. EMIL DRAINS DCD.
--- NOTE | 2016-10-06 09:00 | NUR ---
BATH GIVEN ALL DRESSINGS CHANGED EMIL X 2 DCD FROM RIGHT LEG.
--- NOTE | 2016-10-06 13:17 | NUR ---
* Is the patient Alert and Oriented? Yes 0 * How many steps to enter\exit or inside your home? 2 0 * PCP Dr. Crow Arciniega 0 * Pharmacy [facility] 0 * Preadmission Environment Home with Family 0 * ADLs Independent 0 * Equipment Cane 0 * List name and contact numbers for known caregivers / representatives who currently or will assist patient after discharge: Spouse - Charisse [phone] * Has this patient been hospitalized within the prior 30 days at any hospital? No 10/06/2016 13:17 DCP: Discharge Planning Patient Name: STACY QUESADA Admission Status: Elective Accout number: [id number] Admission Date: 10-04-2016 : 1945 Admission Diagnosis:ATHSCL HEART DISEASE OF [place] CORONARY ARTERY W/O QIAN Attending: EMMA Current LOS: 2 Planned Disposition: To be determined Primary Insurance: MEDICARE A & B Discharge Planning Comments: Patient sedated, on vent. CM spoke with spouse, Charisse, via telephone. She states they live together in a single level home. She reports he uses a cane occasionally. He is independent with ADL's, but has slowly been declining physically. He has not had home health services in the past. DC needs are not known at this time. CM will follow & assist as needed. [employer] Developer: Vandana Hermosillo
--- NOTE | 2016-10-06 14:00 | NUR ---
SBT IN PROGRESS.
--- NOTE | 2016-10-06 14:55 | NUR ---
PT EXTUBATED TO 2.5 L NC. O2 SAT 93 PERCENT.
--- NOTE | 2016-10-06 16:00 | NUR ---
DR NIELSON HERE ANTERIOR AND POSTERIOR CHEST TUBES DCD.
--- NOTE | 2016-10-06 16:30 | NUR ---
BATH AND LINEN CHANGE COMPLETE.
--- NOTE | 2016-10-06 17:00 | NUR ---
PULLING 500 TO 750 ON IS. LARGE MUCUS PLUG COUGHED.
--- NOTE | 2016-10-06 18:00 | NUR ---
SLEEPING NO DISTRESS NOTED.
--- NOTE | 2016-10-06 18:45 | NUR ---
ORAL CARE DONE
--- NOTE | 2016-10-06 19:27 | NUR ---
REPORT RECIEVED. ASSESSMENT COMPLETE PER FLOW SHEET. VSS. PT AWAKE ALERT ORIENTED X3. O2 VIA NC 2.5 L RR 20 NON LABORED 2O SAT 96% STRONG PRODUCTIVE COUGH PRESENT. RUL RML ERICH CLEAR BILAT LOWER LOBES DEMINISHED. EYES PERLLA 3MM BRISK. R SWAN AUDREY PATENT SEE FLOW SHEET FOR INFUSIONS. AT 54 CM LOCKED SECURED DRSG CDI. R SUBCLAVIAN CVL PATENT SEE FLOW SHEET FOR INFUSIONS. DRSG CDI. SWAB CAPPED AND LABELED. CVP 12 WITH GOOD WAVEFORM. SPA/DPA 34/22 WITH GOOD WAVEFORM. HEART S1S2 HR 106 SINUS TACK. GIVEN LASIX IV AT 1700 WILL REASSESS SERUM K+. BP VIA R RADIAL ART LINE 128/76 CO 7.3 CI 3.8 DOPAMINE AT 3.8MCG/KG/MIN DECREASED TO 3.6MCG/KG/MIN WILL REASSESS. MIDSTERNAL INSICION DRSG CDI. TPM PATENT VVI 60 VMA [address] L PLU[address] X1 PATENT TO 20CM SUCTION NO AIR LEAK NOTED AT THIS TIME. SEROSANG DRAINAGE NOTED. TPM WIRE SITE PREVIOUS CT SITE X2 CT SITE X1 DRSG CDI. MOJICA PATENT SHARIF URINE NOTED. TEMP VIA CRITICORE 37.5 C. GENERALIZED EDEMA NOTED X4. R BRACHIAL PULSE PALP L RADIAL PULSE PALP BILAT PEDAL PULSES PALP. R RADIAL A LINE WITH GOOD WAVEFORM ZEROED WRIST PROTECTOR ON EXTREMETY PINK WITH GOOD SENSATION. R LEG HARVEST SITE INCISION DRSG CDI. BS HYPO ACTIVE X4. ABD ROUND SOFT PASSING GAS.BILAT SUNSHINE'S SCD'S ON REMOVED SKIN ASSESSMENT COMPLETE NO NEW FINDNIGS. REAPPLIED. PT GIVEN ICE CHIPS FOR COMFORT, DNEIES PAIN OR NEEDS AT THIS TIME. RESTING COMFORTABLY. NURSE AT BEDSIDE. WILL CONTINUE TO MONITOR.
--- NOTE | 2016-10-06 21:00 | NUR ---
NO VISITORS AT THIS TIME. K READ BACK 3.7 WILL INFUSE PER PROTOCOL AND REASSESS
--- NOTE | 2016-10-06 22:10 | NUR ---
FAMILY CALLED GIVEN UPDATE.
--- NOTE | 2016-10-06 23:16 | NUR ---
REASSESSMENT COMPLETE PER FLOW SHEET. VSS. NO NEW CHANGES. WILL CONTINUE TO MONITOR.
[2016-10-07] VITALS (92 sets, daily range): BP systolic 101–142; BP diastolic 50–83
--- NOTE | 2016-10-07 00:50 | NUR ---
PT O2 SAT ALARMING AT 89% PT WOKE UP ENCOURAGED COUGH DEEP BREATHE IS ENCOURAGED REPOSITIONED UP IN BED. O2 SAT NOW 96% RR NON LAOBRED. NEEDS MET.
--- NOTE | 2016-10-07 02:10 | NUR ---
PT WOKE UP CONFUSED REMOVING ICU EQUIPMENT REORIENTED. VSS WILL CONTINUE TO MONITOR.
--- NOTE | 2016-10-07 03:30 | NUR ---
REASSESSMENT COMPLETE PER FLOW SHEET. NO NEW FINDINGS. REPEAT k+ DRAWN AWAITING RESULTS.
--- NOTE | 2016-10-07 04:15 | NUR ---
k+ READ BACK 3.8 TX PER PROTOCOL. WILL REASSESS WITH AM LAB
--- NOTE | 2016-10-07 05:28 | NUR ---
PT CONFUSED. REORIENTED. REPOSITIONED UP IN BED. VSS. WILL CONTINUE TO MONITOR
--- NOTE | 2016-10-07 06:00 | NUR ---
R LEG DRSG CHANGE ADM NO NEW FINDINGS. SUBSTERNAL DRSG CHANGE COMPLETE. CDI
[2016-10-07 06:33] LABS: HEMATOCRIT 25.9 % (42.0-54.0); HEMOGLOBIN 8.7 g/dL (13.5-17.5); MCH 31.2 pg (26.0-34.0); MCHC 33.6 g/dL (31.0-37.0); MCV 92.8 fL (80.0-100.0); MEAN PLATELET VOLUME 9.3 fL (7.4-10.4); PLATELET COUNT 53 10x3/uL (130-400); RBC 2.79 10x6/uL (4.20-6.10); RDW 14.5 % (11.5-14.5); WBC 10.2 10x3/uL (4.8-10.8)
[2016-10-07 06:56] LABS: ALBUMIN 2.5 g/dL (3.4-5.0); ANION GAP 9.8 mmol/L (8-16); BILIRUBIN - TOTAL 1.16 mg/dL (0.2-1.3); CALCIUM 8.2 mg/dL (8.5-10.1); CREATININE - SERUM 1.2 mg/dL (0.6-1.3); POTASSIUM - SERUM 3.8 mmol/L (3.5-5.1); PROTEIN - SERUM 4.7 g/dL (6.4-8.2)
--- NOTE | 2016-10-07 07:00 | NUR ---
ASSESSMENT COMPLETE PER FLOWSHEET. VOICES NO CO AT TIME. SR UP X 2. PT PULLS 500 TO 750 ON IS. VERY SLUGGISH.
--- NOTE | 2016-10-07 07:42 | NUR ---
ORAL RINSE WITH PERIDEX PROVIDED
[2016-10-07 07:53] LABS: ERYTHROCYTE SEDIMENTATION RATE 45 mm/hr (0-20)
--- NOTE | 2016-10-07 08:30 | NUR ---
BIPAP ON PT AT 40 PERCENT.,
--- NOTE | 2016-10-07 09:00 | NUR ---
PULLING AT BIPAP WRIST RESTRAINTS APPLIED.
--- NOTE | 2016-10-07 10:22 | NUR ---
Nutrition follow-up: Pt just extubated. Remains NPO RDN will monitor pts diet advancement and tolerance.
--- NOTE | 2016-10-07 11:00 | NUR ---
REASSESSED. NO CHANGES NOTED. PT SLEEPING. O2 SAT 99 PERCENT.
--- NOTE | 2016-10-07 13:00 | NUR ---
REPORT GIVEN TO LAURITA GODOY.
--- NOTE | 2016-10-07 13:00 | NUR ---
REC'D PT MARYRT FROM CHRISTINE WATERS RN. PT ON BIPAP 40%, RIGHT JUGULAR SWAN AUDREY APPROX 51CM, LOCKED IN POSITION. RIHGT SUBCLAVIAN CVL WITH FLUIDS INFUSING, SEE FLOW SHEET. MIDSTERNAL INCISION, DRESSING CDI. SUBSTERNAL TPM WIRES SECURED TO CHEST, DRESSING CDI. TPM VVI 60. RIGHT LEG HARVEST SITES, DRESSINGS CDI. MOJICA CATHETER FREE OF KINKS TO GAVITY WITH CLEAR YELLOW URINE RETURN. BILAT WRIST RESTRATINTS, BILAT GRETA, SCD'S. PT REPEATING "I HAVE GOT TO PEE" INFORM PT THAT HE HAS A MOJICA CATHETER, "I KNOW,I HAVE GOT TO PEE." FLUSHED CATHETER WITH 10CC OF NORMAL SALINE. PT 1:1 CARE, WILL CONTINUE TO MONITOR PT.
--- NOTE | 2016-10-07 15:00 | NUR ---
PT RESTING WITH EYES CLOSED, VSS, NO SIGNS OF DISTRESS. REASSESSMENT COMPLETED, SEE FLOW SHEET. ROOM FREE OF CLUTTER, CALL LIGHT IN REACH, WILL CONTINUE TO MONITOR PT.
--- NOTE | 2016-10-07 15:30 | NUR ---
DC'ED RIGHT JUGULAR SWAN AUDREY, TIP INTACT, PRESSURE APPLIED WITH 4X4'S, TEGADERM APPLIED, WILL CONTINUE TO MONITOR FOR BLEEDING. DC'ED RIGHT RADIAL A-LINE, TIP INTACT, PRESSURE APPLIED WITH 4X4'S FOR 5 MINUTES, TEGADERM APPLIED, WILL CONTINUE TO MONITOR FOR BLEEDING. 10CC REMOVED FROM MOJICA CATHETER BALLOON TO DEFLATE, CATHETER REMOVED, TIP INTACT, BEDSIDE URINAL NEEDED. WILL CONTINUE TO MONITOR PT.
--- NOTE | 2016-10-07 19:30 | NUR ---
REC'D TO CARE, GREETER PER FLOWSHEET. ON BIPAP VIA MASK AT THIS TIME, RESTING QUIETLY. WILL AROUSE TO NAME AND ANSWER SOME QUESTIONS. CONFUSION NOTED. BACK TO REST EASILY. L CT NOTED TO 20CM SXN, NO AIR LEAK NOTED AT THIS TIME. B/L SOFT WRIST RESTRAINTS PER ORDER, LINES/TUBING CONCEALED, WILL CONT 1:1 NURSING CARE. IVFS INFUSING TO R DLSC, DSG C/D/I - SEE FLOWSHEET, TITRATING NITRO PER MD ORDER.
--- NOTE | 2016-10-07 20:30 | NUR ---
PT REPOSITIONED UP IN BED, BREAK FROM BIPAP TO 4L NC. PT ANSWERING QUESTIONS APPROP, CONFUSED TO RECENT EVENTS ONLY. REORIENTED BY NURSE. PT WITH PROD COUGH - THICK LIGHT BROWN SPUTUM - USING YANKAUER.
--- NOTE | 2016-10-07 20:57 | NUR ---
PT ON PHONE WITH .
--- NOTE | 2016-10-07 21:08 | NUR ---
PO MEDS GIVEN, NO DIFFICULTY SWALLOWING.
--- NOTE | 2016-10-07 21:14 | NUR ---
STATUS REPORT CALLED TO DR. NIELSON, NEW ORDER REC'D.
--- NOTE | 2016-10-07 21:58 | NUR ---
I.S. TO 750 X 10 - GOOD COUGH
--- NOTE | 2016-10-07 22:37 | NUR ---
PT WATCHING TV, DENIES PAIN OR NEED TO VOID. VSS. CONT 1:1 NURSING CARE. REASSESSMENT PER FLOWSHEET.
--- NOTE | 2016-10-07 23:20 | NUR ---
RT AT BS FOR RESP TX. BACK ON BIPAP 40% PER MD ORDERS.
--- NOTE | 2016-10-07 23:43 | NUR ---
ORAL CARE DONE
[2016-10-08] VITALS (24 sets, daily range): BP systolic 120–149; BP diastolic 63–87
--- NOTE | 2016-10-08 00:25 | NUR ---
FSBS 120. NO SIGN OF DISTRESS. VSS.
--- NOTE | 2016-10-08 01:00 | NUR ---
PT RESTING QUIETLY, REPORTS ADEQUATE PAIN RELIEF AT THIS TIME. VSS.
--- NOTE | 2016-10-08 03:00 | NUR ---
REASSESSMENT PER FLOWSHEET, PT AWAKENS EASILY, RESTRAINTS D/C'D AFTER PT NOT PULLING AT LINES. VSS. PT MORE EASILY ORIENTED TO TIME, COOPERATIVE. WILL CONT 1:1 NURSING CARE.
--- NOTE | 2016-10-08 03:35 | NUR ---
RT AT BS FOR RESP TX. I.S. TO 1000 X 10, GOOD COUGH.
--- NOTE | 2016-10-08 05:49 | NUR ---
AM LAB DRAWN. PT DRINKING WATER INDEPENDENTLY, COOPERATIVE, DENIES NEEDS. AM LAB DRAWN.
[2016-10-08 06:14] LABS: HEMATOCRIT 25.1 % (42.0-54.0); HEMOGLOBIN 8.5 g/dL (13.5-17.5); MCH 31.5 pg (26.0-34.0); MCHC 33.9 g/dL (31.0-37.0); MEAN PLATELET VOLUME 9.7 fL (7.4-10.4); RBC 2.7 10x6/uL (4.20-6.10); RDW 14.4 % (11.5-14.5)
[2016-10-08 06:17] LABS: WBC 5.9 10x3/uL (4.8-10.8)
[2016-10-08 06:28] LABS: ALBUMIN 2.6 g/dL (3.4-5.0); ANION GAP 10.2 mmol/L (8-16); BILIRUBIN - TOTAL 1.04 mg/dL (0.2-1.3); CALCIUM 8.1 mg/dL (8.5-10.1); CARBON DIOXIDE 30.1 mmol/L (21.0-32.0); CREATININE - SERUM 1.2 mg/dL (0.6-1.3); MAGNESIUM - SERUM 2.4 mg/dL (1.8-2.4); PHOSPHOROUS 2.4 mg/dL (2.5-4.9); POTASSIUM - SERUM 3.3 mmol/L (3.5-5.1)
[2016-10-08 06:33] LABS: APTT 38.1 SECONDS (22.8-39.4); INR 1.2 (0.85-1.17); PROTIME 15.1 SECONDS (11.6-15.0)
[2016-10-08 06:34] LABS: D-DIMER-QUANTITATIVE 3.76 ug/mLFEU (0.20-0.54)
--- NOTE | 2016-10-08 06:45 | NUR ---
BACK CARE AND JESSICA-CARE DONE. PADS CHANGED AND PT REPOSITIONED UP IN BED. GIVEN URINAL PER REQUEST.
--- NOTE | 2016-10-08 07:00 | NUR ---
C/O PAIN AFTER TURNING - ADMIN PRN TORADOL. REPORT GIVEN.
--- NOTE | 2016-10-08 07:25 | NUR ---
ORAL CARE DONE WITH PERIDEX.
--- NOTE | 2016-10-08 08:10 | NUR ---
ASSISTED PT WITH BREAKFAST. DENIES CURRENT NEEDS. STATES HE FEELS LIKE HE IS MOVING "SLOW". NO FURTHER C/O.
--- NOTE | 2016-10-08 10:22 | NUR ---
SITTING UP IN CHAIR PER P.T.
--- NOTE | 2016-10-08 16:07 | NUR ---
PLEURAL CHEST TUBE DC'D PER DR. NIELSON.
--- NOTE | 2016-10-08 16:30 | NUR ---
VERIFIED WITH CAMACHO GODOY THAT FSBS ARE NO LONGER NECESSARY.
--- NOTE | 2016-10-08 18:13 | NUR ---
ORAL CARE PERFORMED WITH PERIDEX ORDERED
--- NOTE | 2016-10-08 19:30 | NUR ---
ASSISTED PT TO BEDPAN, VOIDED MODERATE AMT OF SOFT BROWN STOOL. PERICARE PROVIDED AND PARTIAL LINEN CHANGE DONE.
--- NOTE | 2016-10-08 21:50 | NUR ---
PT CALLED, PATIENT CONVERSING EASILY IN NO APPARENT DISTRESS.
--- NOTE | 2016-10-08 23:33 | NUR ---
PT C/O INCISIONAL PAIN, PRN TORADOL 30 MG ADMINISTERED PER MD ORDER, WILL MONITOR FOR DESIRED EFFECT.
[2016-10-09] VITALS (22 sets, daily range): BP systolic 117–158; BP diastolic 63–95
--- NOTE | 2016-10-09 00:51 | NUR ---
PT POSITIONED TO LT SIDE SUPPORTED WITH PILLOWS WITH MODERATE ASSISTANCE, DENIES ANY NEEDS AT THIS TIME, VSS, CALL LIGHT IN REACH.
--- NOTE | 2016-10-09 03:00 | NUR ---
REASSESSMENT PER FLOWSHEET, PT POSITIONED UP IN BED AND SUPPORTED WITH PILLOWS, REMAINS IN SR AT A RATE OF 78, TPM SENSING ONLY.
--- NOTE | 2016-10-09 05:29 | NUR ---
10 MEQ OF KCL AND 1 GRAM OF CALCIUM CHLORIDE INITIATED PER S/S TO TREAT K+ OF 3.2 AND IONIZED CALCIUM OF 0.74 ON AM ABG'S.
[2016-10-09 06:02] LABS: HEMATOCRIT 26.4 % (42.0-54.0); HEMOGLOBIN 8.9 g/dL (13.5-17.5); MCH 31.1 pg (26.0-34.0); MCHC 33.7 g/dL (31.0-37.0); MCV 92.3 fL (80.0-100.0); MEAN PLATELET VOLUME 9.7 fL (7.4-10.4); RBC 2.86 10x6/uL (4.20-6.10); RDW 13.6 % (11.5-14.5); WBC 6.8 10x3/uL (4.8-10.8)
[2016-10-09 06:28] LABS: ALBUMIN 2.6 g/dL (3.4-5.0); ANION GAP 10.7 mmol/L (8-16); BILIRUBIN - TOTAL 1.11 mg/dL (0.2-1.3); CALCIUM 7.8 mg/dL (8.5-10.1); CARBON DIOXIDE 27.6 mmol/L (21.0-32.0); CREATININE - SERUM 1.1 mg/dL (0.6-1.3); MAGNESIUM - SERUM 2.3 mg/dL (1.8-2.4); PHOSPHOROUS 2.6 mg/dL (2.5-4.9); POTASSIUM - SERUM 3.3 mmol/L (3.5-5.1); PROTEIN - SERUM 5.1 g/dL (6.4-8.2)
--- NOTE | 2016-10-09 06:40 | NUR ---
RT LEG DRESSINGS CHANGED PER MD ORDER, PT TOLERATED WITHOUT DIFFICULTY, POSITIONED FOR COMFORT, DENIES ANY NEEDS.
--- NOTE | 2016-10-09 08:25 | NUR ---
AMBULATED APPROX 28' PER P.T. UP TO CHAIR.
--- NOTE | 2016-10-09 12:17 | OP ---
PATIENT NAME: STACY QUESADA MEDICAL RECORD: [id number] :47 LOCATION:[facility] D.[id number] ADMISSION DATE:10/04/16 SURGEON: JOSEPH CLAROS MD DATE OF OPERATION: 10/04/2016 SURGEON: Joseph Claros MD ANESTHESIA: General endotracheal, Dr. Butler. OPERATION PERFORMED: 1. Aortic valve replacement utilizing a [address] Melquiades tissue valvular prosthesis. 2. Coronary artery bypass utilizing left internal thoracic, left anterior descending, reverse saphenous vein segment to the distal right coronary artery and reverse saphenous vein segment to the obtuse marginal coronary artery. PREOPERATIVE DIAGNOSES: Aortic stenosis, occlusive coronary artery disease with angina. FINDINGS AT OPERATION: The aortic valve was sclerotic and moderately stenotic due to calcification of the annulus and base of the leaflets. The valve area approximated 0.9 square cm. The left ventricular function was good. Post-implant of the aortic valve demonstrated no perivalvular leak. The greater saphenous vein from the right thigh was of excellent quality as was the left internal thoracic. The target vessels were diffusely diseased, but of good caliber. ESTIMATED BLOOD LOSS: Cell Saver was used. DESCRIPTION OF PROCEDURE: After informed consent, adequate preoperative medication evaluation, the patient was brought to the operating room, placed on the table in the supine position. After induction of general endotracheal anesthesia and application of appropriate monitoring devices, the chest, neck, abdomen, and both legs were prepped and draped in a sterile field, utilizing Betadine scrub, alcohol and Betadine solution. A Betadine-impregnated drape was also used. Saphenous vein was harvested from right thigh and prepared for reverse saphenous vein graft. The leg was closed over drains utilizing 3-0 Vicryl and skin curt. Median sternotomy incision was used and dissection carried down the fascia. Hemostasis maintained with electrocautery. Sternum was divided. Innominate vein was identified and protected. Left internal thoracic was taken down and prepared for grafting. The patient was given a calculated dose of heparin, cannulated in a standard fashion utilizing 1 aortic, one two-stage cannula in the atrium and inferior vena cava, placed on cardiopulmonary bypass, cooled to 32 degrees centigrade. A cross clamp was placed just proximal to the aortic cannula. The patient was given cardioplegic solution directly through the root. The patient was given cold intermittent cardioplegic solution throughout the procedure through the root, through the grafts, directly through the coronary ostia or a combination of all. The first vessel to be grafted was the distal right. It was grafted end-to-side utilizing a running 7-0 Prolene suture. The graft was measured back to the aorta and connected to the cardioplegia line. Next, the obtuse marginal was grafted end-to-side utilizing a running 7-0 Prolene suture. The graft was measured back to the aorta and a proximal anastomosis, reserved to the aortic valve OPERATIVE REPORT [id number] STACY QUESADA W replacement. This was also connected to the cardioplegia line. Next, left internal thoracic was brought through the hole in pericardium, sutured left anterior descending end-to-side utilizing a running 8-0 Prolene suture. Pedicle was attached to epicardium with a 7-0 Prolene suture. The aorta was then opened. The valve was examined. The valve was heavily calcified around the base and annulus. The valve leaflets could be moved approximately 1 cm square. The valve was excised. The annulus underwent debridement and decalcification, being careful not to lose any calcium. The valve sized to a 23 [address] Melquiades Trifecta. Tissue valve, circumferential valve sutures were placed, then placed through the sewing ring of the valve. The valve was lowered into position and secured. The valve was tested. There was no leak. The aorta was closed in 2 layers utilizing running 4-0 Prolene suture. The proximal anastomosis were then made to the obtuse marginal and distal right coronary artery utilizing running 6-0 Prolene suture. All maneuvers to remove trapped air were performed. The patient was given warm cardioplegic reperfusion and controlled reperfusion. The patient rewarmed to 37 degrees centigrade. Two ventricular pacing wires were placed in the heart and brought out through the epigastric area. The patient was weaned cardiopulmonary bypass. After being stable off bypass, he was given calculated dose of protamine to reverse the heparin. Hemostasis was assured. A #40 right angle and #36 chest tubes were brought in through the epigastric area and placed in the mediastinum. The chest was again irrigated. Instrument count and sponge count were correct times 2. Chest was closed in layers utilizing #7 wire on the sternum, #2 Vicryl on linea alba and pectoralis fascia, subcutaneous tissue approximated with 3-0 Vicryl and skin approximated with 3-0 subcuticular Vicryl. Sterile dressings were applied. The patient tolerated the procedure well and transferred to cardiovascular recovery in critical, but stable condition. TRANSINT:[id number] Voice Confirmation ID: [id number] DOCUMENT ID: [id number] JOSEPH CLAROS MD at 1217 CC: [id number] DICTATION DATE: 10/04/16 170 DEWAXER: 10/05/16 0039 [place] [address]
--- NOTE | 2016-10-09 13:01 | NUR ---
AMBULATED WITH P.T. BACK TO BED AND PLACED ON BIPAP.
--- NOTE | 2016-10-09 16:57 | NUR ---
0800 ORAL CARE DONE WITH PERIDEX
--- NOTE | 2016-10-09 18:46 | NUR ---
ORAL CARE WITH PERIDEX ORDERED
--- NOTE | 2016-10-09 19:20 | NUR ---
RESUMED CARE OF PT, ASSESSMENT PER FLOWSHEET. PT DISORIENTED TO TIME, SITUATION, AND AT TIMES PLACE. ATTEMPTS TO REORIENT ARE SOMEWHAT SUCCESSFUL, PT FOLLOWS COMMANDS WITHOUT DIFFICULTY, PPP. MIDSTERNAL AND SUBSTERNAL DRESSING CDI, TPM WIRES SECURED, VVI AT 60, HR 78 ON CM AND SR, BREATH SOUNDS DIMINISHED IN BASES, BIPAP MASK IN PLACE AT 40%, BED LOW, CALL LIGHT IN REACH.
--- NOTE | 2016-10-09 20:14 | NUR ---
DR NIELSON NOTIFIED REGARDING RHYTHM CHANGE AND OF POTASSIUM RESULT, NO FURTHER ORDERS RECEIVED AT THIS TIME.
--- NOTE | 2016-10-09 21:15 | NUR ---
ASSISTED PT WITH URINAL, PROVIDED PERICARE, BATH AND LINEN CHANGE DONE. PT DREW CALLED, UPDATE PROVIDED.
--- NOTE | 2016-10-09 23:00 | NUR ---
REASSESSMENT PER FLOWSHEET, NO ACUTE CHANGES NOTED AT THIS TIME. PT REQUIRES MINIMAL ASSISTANCE WITH REPOSITIONING, CALL LIGHT IN REACH, IN VIEW OF NURSE'S DESK, VSS.
[2016-10-10] VITALS (23 sets, daily range): BP systolic 100–157; BP diastolic 60–98
--- NOTE | 2016-10-10 01:15 | NUR ---
PT AROUSES EASILY TO VOICE, BIPAP IN PLACE, REPOSITIONED FOR COMFORT, HR SR ON CM. VSS
--- NOTE | 2016-10-10 05:10 | NUR ---
TPM DRESSING CHANGE COMPLETED PER MD ORDER, PT TOLERATED WELL, WILL MONITOR.
--- NOTE | 2016-10-10 05:37 | NUR ---
1 GM CALCIUM CHLORIDE INITIATED TO TREAT IONIZED CALCIUM OF 0.87 ON ABG'S PER MD S/S
[2016-10-10 06:10] LABS: BASOPHILS 0.1 % (0-2); EOSINOPHILS 0.1 % (0-7); HEMATOCRIT 26.7 % (42.0-54.0); HEMOGLOBIN 8.9 g/dL (13.5-17.5); IMMATURE GRANULOCYTES 0.4 % (0-5); LYMPHOCYTES 4.8 % (15-50); MCHC 33.3 g/dL (31.0-37.0); MEAN PLATELET VOLUME 9.4 fL (7.4-10.4); NEUTROPHILS 87.6 % (40-80); PLATELET COUNT 125 10x3/uL (130-400); RBC 2.87 10x6/uL (4.20-6.10); RDW 13.7 % (11.5-14.5); WBC 11.4 10x3/uL (4.8-10.8)
[2016-10-10 06:27] LABS: ANION GAP 11.5 mmol/L (8-16); CARBON DIOXIDE 25.7 mmol/L (21.0-32.0); CREATININE - SERUM 1.1 mg/dL (0.6-1.3); MAGNESIUM - SERUM 2.3 mg/dL (1.8-2.4); POTASSIUM - SERUM 4.2 mmol/L (3.5-5.1)
[2016-10-10 06:31] LABS: PHOSPHOROUS 3.4 mg/dL (2.5-4.9)
--- NOTE | 2016-10-10 07:50 | NUR ---
ASSISTED TO BATHROOM AND UP TO CHAIR.
--- NOTE | 2016-10-10 08:19 | NUR ---
ORAL CARE DONE WITH PERIDEX
--- NOTE | 2016-10-10 18:00 | NUR ---
ASSISTED TO BATHROOM AND BACK TO BED.
--- NOTE | 2016-10-10 19:03 | NUR ---
ORAL CARE PERFORMED WITH PERIDEX ORDERED
--- NOTE | 2016-10-10 19:30 | NUR ---
RESUMED CARE OF PT, SITTING UP IN BED ON RA IN NO APPARENT DISTRESS, HR SR ON CM, TPM V-SENSING, BREATH SOUNDS DIMINISHED IN BASES, ICE WATER PROVIDED PER REQUEST, CALL LIGHT IN REACH, WILL MONITOR.
--- NOTE | 2016-10-10 21:30 | NUR ---
ASSISTED PT TO BSC, VOIDED 600 CC OF SHARIF URINE, MODERATE AMT OF SOFT STOOL. BACK TO BED AND POSITIONED FOR COMFORT, PT TOLERATED WELL, VSS.
[2016-10-11] VITALS (24 sets, daily range): BP systolic 120–162; BP diastolic 62–621
--- NOTE | 2016-10-11 01:15 | NUR ---
PT C/O INCISIONAL PAIN 4/10 ON PAIN SCALE, PRN PO PAIN MED ADMINISTERED PER MD ORDER AND PT REQUEST.
--- NOTE | 2016-10-11 03:00 | NUR ---
REASSESSMENT PER FLOWSHEET, NO ACUTE CHANGES NOTED, VSS, CONT POC.
--- NOTE | 2016-10-11 05:10 | NUR ---
ASSISTED PT TO BR, VOIDED 400 CC OF SHARIF URINE, BACK TO BED WITH ASSIST, POSITIONED FOR COMFORT, VSS.
[2016-10-11 06:05] LABS: HEMATOCRIT 26.9 % (42.0-54.0); HEMOGLOBIN 8.8 g/dL (13.5-17.5); MCH 30.9 pg (26.0-34.0); MCHC 32.7 g/dL (31.0-37.0); MCV 94.4 fL (80.0-100.0); MEAN PLATELET VOLUME 9.3 fL (7.4-10.4); RBC 2.85 10x6/uL (4.20-6.10); RDW 14.4 % (11.5-14.5)
[2016-10-11 06:07] LABS: WBC 14.3 10x3/uL (4.8-10.8)
[2016-10-11 06:21] LABS: ANION GAP 10.2 mmol/L (8-16); CALCIUM 8.1 mg/dL (8.5-10.1); CARBON DIOXIDE 24.8 mmol/L (21.0-32.0); CREATININE - SERUM 1.1 mg/dL (0.6-1.3); MAGNESIUM - SERUM 2.1 mg/dL (1.8-2.4)
[2016-10-11 06:23] LABS: PHOSPHOROUS 2.3 mg/dL (2.5-4.9)
--- NOTE | 2016-10-11 07:12 | NUR ---
ORAL CARE DONE WITH PERIDEX
--- NOTE | 2016-10-11 07:15 | NUR ---
REPORT RECIEVED FROM [employer] MANAGER NURSE. PT RESTING IN BED QUIETLY. NO S/SX OF ACUTE DISTRESS NOTED AT THIS TIME. FULL ASSESSMENT COMPLETE PER FLOWSHEET. CALL LIGHT IN REACH. BED IN LOW POSITION. WILL CONT TO ASSESS FOR CHANGES.
--- NOTE | 2016-10-11 08:15 | NUR ---
ASSISTED TO BATHROOM. VOIDED 400CC OF SHARIF COLORED URINE. MINIMAL ASSISTANCE REQUIRED WHEN AMBULATING. ASSISTED TO RECLINER FOR BREAKFAST. CALL LIGHT IN REACH. VSS.
--- NOTE | 2016-10-11 09:15 | NUR ---
WHILE IN PT'S ROOM PT EXPERIENCED A SEIZURE. HIS EYES ROLLED AROUND AND HIS HEAD WAS TILTING BACK AND FORTH IN SLOW MOTIONS. PT NEVER LOST CONSCIOUSNESS AND WAS ABLE TO SPEAK TO ME THROUGHOUT SZ. VS REMAINED STABLE THROUGHOUT. DR. NIELSON NOTIFIED.
--- NOTE | 2016-10-11 09:19 | NUR ---
NUTRITION MONITORING & EVAL CHART REVIEWED. PT TOLERATING REG DIET. PER INTAKE RECORDS PT WITH IMPROVING PO INTAKE. RD FOLLOWING
--- NOTE | 2016-10-11 09:30 | NUR ---
MORNING MEDICATIONS ADMINISTERED PER EMAR.
--- NOTE | 2016-10-11 11:00 | NUR ---
REASSESSMENT COMPLETE PER FLOWSHEET. NO CHANGES NOTED AT THIS TIME. WILL CONT TO ASSESS FOR CHANGES.
--- NOTE | 2016-10-11 12:00 | NUR ---
ASSISTED WITH LUNCH TRAY. DENIES FURTHER NEEDS. CALL LIGHT IN REACH.
--- NOTE | 2016-10-11 12:58 | NUR ---
10/11/2016 12:56 DCP: Discharge Planning Patient Name: STACY QUESADA Encounter No: [id number] : 1945 Primary Insurance: MEDICARE A & B Anticipated DC Date: 10-12-2016 Planned Disposition: Home DCP follow-up note: CM met with patient. He plans to return home with his at discharge. No needs identified or verbalized at this time. Patient and family in agreement with discharge plan. Anticipate DC in next 1-2 days. Case management will follow and assist as needed. Vandana Hermosillo
--- NOTE | 2016-10-11 14:43 | NUR ---
WALKED 250FT WITH PT. MIN ASSIST REQUIRED.
--- NOTE | 2016-10-11 15:02 | TEE ---
PATIENT:STACY QUESADA MEDICAL RECORD: [id number] LOCATION:[place] [address] AGE OF PATIENT: 70 ADMISSION DATE: 10/04/16 SEX: M REFERRING PHYSICIAN: INTERPRETING PHYSICIAN: RADHA RICHARDS MD TRANSESOPHAGEAL ECHOCARDIOGRAM LEV CHARGE Y INDICATIONS: CABG/AVR PREMEDICATIONS: PATIENT'S RESPONSE PROCEDURE DOPPLER MEASUREMENTS: LVIT LA PA RA LVOT RVOT Asc. Ao AV Gradient Peak AV Mean AV Area MV Gradient Peak MV Mean MV Area INTERPRETATION: LVd: 3.9 cm LVs: 2.3 cm Doppler: 2-D: COLOR FLOW DOPPLER NORMAL SALINE STUDY: MISCELLANOUS: DIAGNOSIS: PLAN: Carpenter Packing:10 Dr[address] [employer] Programmer: Sahra GIRON COMMENTS: DATE OF SERVICE: 10/04/2016 Transesophageal echo evaluation of valvular structures during bypass surgery. FINDINGS: 1. Left ventricle chamber size is within normal limits. Left ventricular systolic function is normal. Overall ejection fraction estimated at 60%. 2. Left atrium, right atrium, and right ventricular chamber sizes are within normal limits. TRANSESOPHAGEAL ECHOCARDIOGRAM REPORT [id number] STACY QUESADA 3. Valvular structures: Aortic valve demonstrates moderate calcific aortic stenosis; however, this is not a new finding. The patient is scheduled for aortic valve replacement. The remaining valvular structures have normal structure and motion. 4. Doppler interrogation elsewise reveals no significant valvular insufficiency or stenosis. 5. No evidence of pericardial effusion or left ventricular thrombus. TRANSINT:[id number] Voice Confirmation ID: [id number] DOCUMENT ID: [id number] at 1502 CC: [id number] DICTATION DATE: 10/04/[address] DRIVER: 10/05/16 0334 ADM IN [place] [id number] [place] [id number]
--- NOTE | 2016-10-11 16:00 | NUR ---
RECLINED IN CHAIR WITH EYES CLOSED. RESP EVEN AND UNLABORED. NO S/SX OF ACUTE DISTRESS NOTED AT THIS TIME. WILL CONT TO MONITOR.
--- NOTE | 2016-10-11 17:00 | NUR ---
ASSISTED IN A SITTING POSITION. BEDSIDE TABLE PLACED IN REACH WITH DINNER TRAY. FRESH ICE WATER PROVIDED. DENIES FURTHER NEEDS. WILL CONT TO ASSESS.
--- NOTE | 2016-10-11 18:05 | NUR ---
ORAL CARE PERFORMED WITH PERIDEX ORDERED
--- NOTE | 2016-10-11 19:35 | NUR ---
REPORT REC'D AND CARE ASSUMED, REC'D PT SITTING ON SIDE OF BED, SOB ON EXERTION NOTED ON ROOM AIR, O2 SAT 96%, RDLSCL DRSG CDI CVP VIA DISTAL PORT, MIDSTERNAL DRSG CDI, SUBSTERNAL DRSG CDI, EXTERNAL P/M VVI 60 VMA 10, CM-SR @ 77, RIGHT LEG DRSGS CDI, TRACE OF EDEMA NOTED TO EXT'S, PT ASSISTED UP TO BATHROOM, VOIDED 500 SHARIF COLORED URINE, PT REQUESTED TO RETURN TO CHAIR, ASSISTED TO BSC, CALL LIGHT AND BS TABLE IN REACH, DENIES OTHER NEEDS.
--- NOTE | 2016-10-11 20:45 | NUR ---
EVENING MEDS GIVEN, PT REMAINS UP IN CHAIR, DENIES NEEDS.
--- NOTE | 2016-10-11 22:40 | NUR ---
PT REQUESTING TO GO BACK TO BED, ASSISTED OVER TO BED, GAIT STEADY, REPOSITIONED UP IN BED FOR COMFORT, VSS, SR UP X 2, CALL LIGHT IN REACH.
--- NOTE | 2016-10-11 22:45 | NUR ---
PT COMPLAINS OF LOWER BACK PAIN, REQUESTING PAIN PILL, INFORMED PT IT WAS TOO SOON FOR PAIN PILL, 30MG TORADOL GIVEN SLOW IVP FOR DISCOMFORT, WILL MONITOR CLOSELY FOR CHANGES.
--- NOTE | 2016-10-11 23:30 | NUR ---
REASSESSMENT COMPLETED, PT REPORTS RELIEF OF BACK PAIN WITH TORADOL, STATES "THAT WORKED WELL", BP ELEVATED, PT DENIES FURTHER NEEDS, WILL MONITOR FOR CHANGES.
[2016-10-12] VITALS (16 sets, daily range): BP systolic 126–167; BP diastolic 67–97
--- NOTE | 2016-10-12 02:15 | NUR ---
PT ASSISTED UP TO BATHROOM TO VOID, LINEN CHANGE PROVIDED, PT WISHES TO MOVE TO CHAIR AT THIS TIME, ASSISTED TO RECLINER, DENIES FURTHER NEEDS.
--- NOTE | 2016-10-12 03:55 | NUR ---
PT TAKEN TO XRAY FOR PA AND LATERAL
--- NOTE | 2016-10-12 04:15 | NUR ---
PT RETURNED FROM PA AND LATERAL, ASSISTED PT OVER TO RECLINER, SUBSTERNAL DRSG CHANGED, PT REQUESTING WATER, WATER PROVIDED, PT DENIES FURTHER NEEDS, CALL LIGHT IN REACH
--- NOTE | 2016-10-12 06:00 | NUR ---
AM MEDS GIVEN, PT REMAINS UP IN CHAIR AWAITING BREAKFAST, COMPLAINS OF BEING COLD, WARM BLANKET PROVIDED, PT DENIES FURTHER NEEDS, NO FURTHER NEEDS VOICED.
[2016-10-12 07:04] LABS: CALC OSMOLALITY 284 mosm/kg (275-300); CALCIUM 7.5 mg/dL (8.5-10.1); CARBON DIOXIDE 22.7 mmol/L (21.0-32.0); CHLORIDE - SERUM 111 mmol/L (98-107); CREATININE - SERUM 0.9 mg/dL (0.6-1.3); POTASSIUM - SERUM 4.1 mmol/L (3.5-5.1); SODIUM 142 mmol/L (136-145); UREA NITROGEN 21 mg/dL (7-18); eGFR NON AFRICAN AMERICAN 89 mL/min (90-120)
[2016-10-12 07:08] LABS: GLUCOSE 85 mg/dL (74-106)
[2016-10-12 07:44] LABS: HEMOGLOBIN 8.4 g/dL (13.5-17.5); MCH 30.8 pg (26.0-34.0); MCHC 32.3 g/dL (31.0-37.0); MCV 95.2 fL (80.0-100.0); MEAN PLATELET VOLUME 9.4 fL (7.4-10.4); RBC 2.73 10x6/uL (4.20-6.10); RDW 15.1 % (11.5-14.5); WBC 10.2 10x3/uL (4.8-10.8)
--- NOTE | 2016-10-12 08:00 | NUR ---
SHIFT ASSESSMENT VIA FLOWSHEET, SEE FOR DETAILS.
--- NOTE | 2016-10-12 09:15 | NUR ---
ORAL CARE DONE WITH PERIDEX
[2016-10-12] MEDS ORDERED: BETAPACE 120 M120 MG PO (09:52)
[2016-10-12] MEDS ORDERED: LASIX40 MG PO (09:54)
[2016-10-12] MEDS ORDERED: K-DUR20 MEQ PO (09:55)
[2016-10-12] MEDS ORDERED: HYDROCODON-ACE1 EAC7 PO (09:57)
--- NOTE | 2016-10-12 11:38 | NUR ---
10/12/2016 11:31 DCP: Discharge Planning Patient Name: STACY QUESADA Encounter No: [id number] : 1945 Primary Insurance: MEDICARE A & B Anticipated DC Date: 10-12-2016 Planned Disposition: Home DCP follow-up note: DC order rec'd. Patient in agreement with discharge plan. No changes to plan. Patient waiting on spouse to arrive to drive him home. No needs verbalized or identified. Vandana Hermosillo
--- NOTE | 2016-10-12 12:00 | NUR ---
CAMACHO FRIEDMAN RN AT BEDSIDE TO PROVIDE DISCHARGE TEACHING. PRESENT FOR INSTRUCTION.
--- NOTE | 2016-10-12 12:30 | NUR ---
LUNCH TRAY PROVIDED, PT POSITIONED FOR COMFORT. VSS, SR ON CM. AT BEDSIDE.
--- NOTE | 2016-10-12 13:02 | NUR ---
10/12/2016 12:58 DCP: Discharge Planning Rec'd call from nursing - spouse asking about home health. CM met with patient & spouse - Answered questions regarding home health. Reviewed list of local home health agencies. RUSLAN signed for [facility]. Referral faxed and called to [facility].
--- NOTE | 2016-10-12 13:30 | NUR ---
CVL D/C'D PER ORDER. PT PLACED IN SUPINE POSITION, D/C'D WITH CATH TIP INTACT.
--- NOTE | 2016-10-12 15:00 | NUR ---
PT D/C TEACHING PROVIDED, PT VERBALIZED UNDERSTANDING.
--- NOTE | 2016-10-12 15:10 | NUR ---
PT TO FRONT ENTRANCE VIA WHEELCHAIR, ALL BELONGINGS WITH PATIENT AT TIME OF D/C.
== END 2016-10-12 15:05 | disposition home health service (06) | DRG 219 ==
LOC: D.CVICU 05:00 → D.SDCHOLD 05:00 → D.CVICU 13:04
PROVIDERS: Internal Medicine Pulmonary Disease; ADMIT Internal Medicine Cardiovascular Disease
PROC: 021109W Bypass Coronary Artery, Two Arteries from Aorta with Autologous Venous Tissue, Open Approach (ICD-10-PCS; 2016-10-04)
PROC: 06BP0ZZ Excision of Right Saphenous Vein, Open Approach (ICD-10-PCS; 2016-10-04)
PROC: 5A1221Z Performance of Cardiac Output, Continuous (ICD-10-PCS; 2016-10-04)
PROC: 02100AC Bypass Coronary Artery, One Artery from Thoracic Artery with Autologous Arterial Tissue, Open Approach (ICD-10-PCS; principal; 2016-10-04 07:30)
PROC: 02RF08Z Replacement of Aortic Valve with Zooplastic Tissue, Open Approach (ICD-10-PCS; 2016-10-04 07:30)
DX: I25.10 Atherosclerotic heart disease of native coronary artery without angina pectoris (principal); J96.01 Acute respiratory failure with hypoxia; J18.9 Pneumonia, unspecified organism; G93.41 Metabolic encephalopathy; D62 Acute posthemorrhagic anemia; I35.0 Nonrheumatic aortic (valve) stenosis; E78.00 Pure hypercholesterolemia, unspecified; I10 Essential (primary) hypertension; Z87.891 Personal history of nicotine dependence; G40.909 Epilepsy, unspecified, not intractable, without status epilepticus; G47.33 Obstructive sleep apnea (adult) (pediatric); N40.0 Benign prostatic hyperplasia without lower urinary tract symptoms; D69.6 Thrombocytopenia, unspecified; R53.81 Other malaise; T50.905A Adverse effect of unspecified drugs, medicaments and biological substances, initial encounter

== ENCOUNTER → 2016-10-28 09:41 | Outpatient (CLI) | payer MEDICARE, OTHER ==
[2016-10-05 09:39] VITALS: BMI 34.6
[~2016-10-28 09:41] MED LIST changes: +BETAPACE 120 M120 MG PO; +HYDROCODON-ACE1 EAC7 PO; +K-DUR20 MEQ PO; +LASIX40 MG PO
[2016-10-28 10:23] LABS: HEMATOCRIT 38.1 % (42.0-54.0); HEMOGLOBIN 12.7 g/dL (13.5-17.5); MCH 31.1 pg (26.0-34.0); MCHC 33.3 g/dL (31.0-37.0); MCV 93.2 fL (80.0-100.0); MEAN PLATELET VOLUME 9.6 fL (7.4-10.4); RBC 4.09 10x6/uL (4.20-6.10); RDW 13.7 % (11.5-14.5); WBC 6.1 10x3/uL (4.8-10.8)
[2016-10-28 11:02] LABS: ANION GAP 13.4 mmol/L (8-16); CALCIUM 9.4 mg/dL (8.5-10.1); CARBON DIOXIDE 26.4 mmol/L (21.0-32.0); CREATININE - SERUM 1.2 mg/dL (0.6-1.3); POTASSIUM - SERUM 3.8 mmol/L (3.5-5.1)
== END | disposition home or self-care (01) ==
LOC: D.LAB 09:41 → D.RAD 10:30
PROVIDERS: Internal Medicine Cardiovascular Disease
DX: J91.8 Pleural effusion in other conditions classified elsewhere (principal); D64.9 Anemia, unspecified

== ENCOUNTER → 2016-11-04 14:11 | Outpatient (CLI) | payer MEDICARE, OTHER ==
[2016-10-05 09:39] VITALS: BMI 34.6
== END | disposition home or self-care (01) ==
LOC: D.RAD 14:11
DX: J45.909 Unspecified asthma, uncomplicated (principal)

== ENCOUNTER → 2017-03-14 08:58 | Outpatient (CLI) | payer MEDICARE, OTHER ==
[2016-10-05 09:39] VITALS: BMI 34.6
== END | disposition home or self-care (01) ==
LOC: D.OPS 08:58
DX: Z95.2 Presence of prosthetic heart valve (principal)

== ENCOUNTER 2017-05-17 00:26 | Emergency (ER) | payer MEDICARE, OTHER ==
[2016-10-05 09:39] VITALS: BMI 34.6
[2017-05-17 01:28] LABS: BASOPHILS 0.3 % (0-2); EOSINOPHILS 1.4 % (0-7); HEMOGLOBIN 15.4 g/dL (13.5-17.5); IMMATURE GRANULOCYTES 0.3 % (0-5); MCH 32.8 pg (26.0-34.0); MCHC 35.8 g/dL (31.0-37.0); MCV 91.5 fL (80.0-100.0); MEAN PLATELET VOLUME 8.6 fL (7.4-10.4); MONOCYTES 8.9 % (2-11); NEUTROPHILS 77.1 % (40-80); PLATELET COUNT 199 10x3/uL (130-400); RDW 11.4 % (11.5-14.5); WBC 11.8 10x3/uL (4.8-10.8)
[2017-05-17 01:44] LABS: ALBUMIN 3.3 g/dL (3.4-5.0); ANION GAP 10.5 mmol/L (8-16); BILIRUBIN - TOTAL 0.75 mg/dL (0.2-1.3); CALCIUM 8.4 mg/dL (8.5-10.1); CARBON DIOXIDE 28.1 mmol/L (21.0-32.0); CREATININE - SERUM 1.6 mg/dL (0.6-1.3); POTASSIUM - SERUM 3.6 mmol/L (3.5-5.1); PROTEIN - SERUM 6.1 g/dL (6.4-8.2)
== END 2017-05-17 07:38 | disposition home or self-care (01) ==
LOC: D.ER 00:26
PROVIDERS: Emergency Medicine
DX: E86.0 Dehydration (principal); R00.1 Bradycardia, unspecified

== ENCOUNTER 2017-09-13 09:20 | Outpatient (CLI) | payer MEDICARE, OTHER ==
[~2017-09-13] VITALS: Ht 172.7 cm; Wt 80.9 kg
[2017-09-13 10:26] VITALS: BP 126/66; Ht 172.7 cm; Wt 80.9 kg
== END 2017-09-13 12:53 | disposition home or self-care (01) ==
LOC: D.OPS 09:20
DX: Z95.2 Presence of prosthetic heart valve (principal)

== ENCOUNTER 2017-09-16 11:04 | Emergency (ER) | payer MEDICARE, OTHER ==
[2017-09-13 10:26] VITALS: BMI 27.1
[2017-09-16 11:42] LABS: BASOPHILS 0.3 % (0-2); EOSINOPHILS 0.8 % (0-7); HEMATOCRIT 38.5 % (42.0-54.0); IMMATURE GRANULOCYTES 0.2 % (0-5); LYMPHOCYTES 15.3 % (15-50); MCH 33.1 pg (26.0-34.0); MCHC 36.4 g/dL (31.0-37.0); MEAN PLATELET VOLUME 8.9 fL (7.4-10.4); MONOCYTES 9.3 % (2-11); NEUTROPHILS 74.1 % (40-80); RBC 4.23 10x6/uL (4.20-6.10); RDW 11.7 % (11.5-14.5); WBC 6.3 10x3/uL (4.8-10.8)
[2017-09-16 11:44] LABS: PLATELET COUNT 155 10x3/uL (130-400)
[2017-09-16 11:57] LABS: ALBUMIN 3.8 g/dL (3.4-5.0); ANION GAP 12.9 mmol/L (8-16); BILIRUBIN - TOTAL 1.05 mg/dL (0.2-1.3); CALCIUM 9.6 mg/dL (8.5-10.1); CARBON DIOXIDE 27.1 mmol/L (21.0-32.0); CREATININE - SERUM 1.4 mg/dL (0.6-1.3); PROTEIN - SERUM 6.5 g/dL (6.4-8.2)
== END 2017-09-16 15:08 | disposition home or self-care (01) ==
LOC: D.ER 11:04
PROVIDERS: Emergency Medicine
DX: R55 Syncope and collapse (principal); E86.0 Dehydration; N17.9 Acute kidney failure, unspecified; R00.1 Bradycardia, unspecified; I44.0 Atrioventricular block, first degree

== ENCOUNTER 2018-03-21 09:38 | Outpatient (CLI) | payer MEDICARE, OTHER ==
[~2018-03-21] VITALS: Ht 172.7 cm; Wt 78.9 kg
[2018-03-21 11:06] VITALS: BP 162/80; Ht 172.7 cm; Wt 78.9 kg
== END 2018-03-21 13:03 ==
LOC: D.OPS 09:38
DX: Z95.2 Presence of prosthetic heart valve (principal); Z01.812 Encounter for preprocedural laboratory examination

== ENCOUNTER 2018-07-25 02:58 | Observation (INO) | payer MEDICARE, OTHER ==
[~2018-07-25] VITALS: Ht 172.7 cm; Wt 79.4 kg
[2018-07-25] MEDS ORDERED: HYDROCHLOROTHIAZIDE PO (03:07)
[2018-07-25] MEDS ORDERED: LOSARTAN PO (03:07)
[2018-07-25] MEDS ORDERED: PROSCAR5 MG PO (03:08)
--- NOTE | 2018-07-25 03:45 | NUR ---
PATIENT GIVEN A URINAL TO COLLECT A URINE SPECIMEN.
[2018-07-25 04:18] LABS: BASOPHILS 0.1 % (0-2); HEMATOCRIT 40.6 % (42.0-54.0); HEMOGLOBIN 14.6 g/dL (13.5-17.5); IMMATURE GRANULOCYTES 0.2 % (0-5); MCH 32.9 pg (26.0-34.0); MCV 91.4 fL (80.0-100.0); MONOCYTES 9.9 % (2-11); NEUTROPHILS 75.8 % (40-80); PLATELET COUNT 183 10x3/uL (130-400); RBC 4.44 10x6/uL (4.20-6.10); RDW 11.8 % (11.5-14.5); WBC 9.4 10x3/uL (4.8-10.8)
[2018-07-25 04:29] LABS: ALBUMIN 3.9 g/dL (3.4-5.0); ALKALINE PHOSPHATASE 56 U/L (46-116); ALT (SGPT) 39 U/L (10-68); BILIRUBIN - TOTAL 0.74 mg/dL (0.2-1.3); CALC OSMOLALITY 271 mosm/kg (275-300); CALCIUM 9.2 mg/dL (8.5-10.1); CARBON DIOXIDE 29.1 mmol/L (21.0-32.0); CHLORIDE - SERUM 97 mmol/L (98-107); CREATININE - SERUM 1.4 mg/dL (0.6-1.3); GLUCOSE 124 mg/dL (74-106); PROTEIN - SERUM 7.3 g/dL (6.4-8.2); SODIUM 135 mmol/L (136-145); UREA NITROGEN 15 mg/dL (7-18); eGFR NON AFRICAN AMERICAN 53 mL/min (90-120)
[2018-07-25 04:39] LABS: AMYLASE - SERUM 51 U/L (25-115); CREATINE KINASE 41 UL (21-232); LIPASE 161 U/L (73-393); MAGNESIUM - SERUM 2.2 mg/dL (1.8-2.4); TROPONIN-I < 0.017 ng/mL (0.000-0.060)
--- NOTE | 2018-07-25 04:44 | NUR ---
URINE SPECIMEN COLLECTED AND SENT TO THE LAB VIA TUBE SYSTEM
[2018-07-25 04:59] VITALS: BP 125/70
--- NOTE | 2018-07-25 05:15 | NUR ---
PATIENT GIVEN A WARM BLANKET.
[2018-07-25 05:20] LABS: APPEARANCE CLEAR (CLEAR); BILIRUBIN NEGATIVE (NEGATIVE); COLOR YELLOW (YELLOW); GLUCOSE NEGATIVE (NEGATIVE); KETONE NEGATIVE (NEGATIVE); NITRITE NEGATIVE (NEGATIVE); PROTEIN 2+ mg/dL (NEGATIVE); UROBILINOGEN NORMAL (NORMAL)
[2018-07-25 05:21] LABS: BACTERIA FEW /hpf (NONE SEEN); EPITHELIAL CELLS 0-5 /hpf (0-5); MUCUS <1+ /lpf (NONE SEEN); RED CELLS - URINE RARE /hpf (0-5); WHITE CELLS - URINE RARE /hpf (0-5)
--- NOTE | 2018-07-25 05:50 | NUR ---
PATIENT GIVEN NON SLIP SOCKS AND ADDITIONAL BLANKETS.
--- NOTE | 2018-07-25 07:54 | NUR ---
HAND-OFF REPORT RECIEVED FROM OFF-GOING NURSE ULISSES, AT 0700. PT OBSERVED LYING IN BED. RESPIRATIONS EVEN AND UNLABORED. WAKES EASILY TO VERBAL STIMULI. IV INFUSING ORDERED WITHOUT SIGNS OF INFILTRATION. CALL LIGHT IN REACH. PT AWARE HE IS BEING ADMITTED TO [facility], AWAITING BED ASSIGNMENT. DENIES ANY NEEDS, WILL CONTINUE TO MONITOR.
--- NOTE | 2018-07-25 08:12 | NUR ---
PT GIVEN AHA BREAKFAST TRAY ORDERED.
[2018-07-25 08:52] VITALS: BP 107/58; BMI 26.6
[2018-07-25 09:00] VITALS: BP 107/58
[2018-07-25 09:33] LABS: CKMB 0.8 U/L (0.0-3.6); CREATINE KINASE 34 UL (21-232); TROPONIN-I < 0.017 ng/mL (0.000-0.060)
[2018-07-25 10:30] LABS: THYROID STIMULATING HORMONE 0.87 uIU/mL (0.36-3.74)
--- NOTE | 2018-07-25 12:13 | NUR ---
PT ALERT AND ORIENTED. RESPIRATIONS EVEN AND UNLABORED. IV INFUSING ORDERED WITHOUT SIGNS OF INFILTRATION. CALL LIGHT IN REACH. LUNCH TRAY GIVEN PER DIETARY ORDERS. PT DENIES ANY NEEDS. CALL LIGHT IN REACH, WILL CONTINUE TO MONITOR.
[2018-07-25 12:30] VITALS: BP 114/72
[2018-07-25 13:30] VITALS: BP 122/68
--- NOTE | 2018-07-25 15:00 | NUR ---
RECEIVED REPORT FROM [facility] IN ED. PATIENT TO UNIT SOON ECHO IS COMPLETE.
--- NOTE | 2018-07-25 15:00 | NUR ---
ORDERED ECHO BEING PERFOMRED AT THE BEDSIDE, WILL TRANSPORT PT TO ROOM 2311 ONCE ECHO IS COMPLETE.
--- NOTE | 2018-07-25 15:26 | NUR ---
PATIENT RECIEVED TO ROOM 2133 VIA ROSE MARIE FROM ED. PATIENT ALERT/ORIENTED. ASSISTED WITH TRANSFERRING HIMSELF TO BED. IV FLUIDS INFUSING AT 200 ML/HR TO LEFT FOREARM. CALL LIGHT WITH IN REACH. NO DISTRESS.
[2018-07-25] MEDS ORDERED: PROBIOTIC1 EAC1 PO (15:31)
--- NOTE | 2018-07-25 15:54 | NUR ---
136/72, 69, 18, 100%, RA, 97.4, ADMIT VITALS 175LBS STATED, 5'8
--- NOTE | 2018-07-25 17:18 | NUR ---
PATIENT RESTING IN BED WITH ATTENTION TOWARD TELEVISION. PATIENT DENIES ANY NEEDS. PATIENT STATES HE HAS SPOKE TO HIS AND HE THINKS HE IS FEELING BETTER AFTER ALL OF THE FLUIDS HE HAS RECIEVED. CALL LIGHT WITHIN REACH. NO DISTRESS. SR UP FOR SAFETY.
[2018-07-25 18:00] LABS: CKMB 0.5 U/L (0.0-3.6); CREATINE KINASE 33 UL (21-232)
[2018-07-25 18:02] LABS: TROPONIN-I < 0.017 ng/mL (0.000-0.060)
--- NOTE | 2018-07-25 18:23 | NUR ---
PATIENT AWARE OF NPO STATUS UNTIL 8PM WHEN TAKEN TO SCAN FOR CTA OF CHEST. LOVENOX INITIATED AT THIS TIME. NO DISTRESS. CALL LIGHT WITHIN REACH.
--- NOTE | 2018-07-25 19:38 | NUR ---
PT IN BED LOW POSITION, EYES OPEN, NO IMMEDIATE NEEDS NOTED, PT NPO AT THIS TIME, CT SCAN WITH CONTRAST SCHEDULED AT 1999, WILL CONTINUE TO MONITOR PT, HYPOTENSION ISSUES URINAL IN USE BSC AVAILABLE IF NEEDED
--- NOTE | 2018-07-25 22:12 | NUR ---
PT UP ON SIDE OF BED, NEW BAG OF NS HUNG AT 2100, NO OTHER NEEDS NOTED, FLUIDS AND CALL LIGHT WITHIN REACH
[2018-07-25 22:27] LABS: CKMB 0.7 U/L (0.0-3.6); CREATINE KINASE 34 UL (21-232); TROPONIN-I < 0.017 ng/mL (0.000-0.060)
[2018-07-25 23:54] VITALS: BP 171/96
--- NOTE | 2018-07-26 02:43 | NUR ---
PT RESTING IN BED, LOW POSITION, EYES CLOSED, AROUSES EASILY TO VOICE, NO IMMEDIATE NEEDS NOTED, FLUIDS AND CALL LIGHT WITHIN REACH
[2018-07-26 04:09] VITALS: BP 150/90
[2018-07-26 06:52] LABS: BASOPHILS 0.2 % (0-2); EOSINOPHILS 1.6 % (0-7); HEMATOCRIT 34.7 % (42.0-54.0); IMMATURE GRANULOCYTES 0.2 % (0-5); LYMPHOCYTES 25.2 % (15-50); MCHC 34.6 g/dL (31.0-37.0); MCV 92.5 fL (80.0-100.0); MEAN PLATELET VOLUME 9.1 fL (7.4-10.4); MONOCYTES 10.6 % (2-11); NEUTROPHILS 62.2 % (40-80); RBC 3.75 10x6/uL (4.20-6.10); RDW 12.3 % (11.5-14.5)
[2018-07-26 06:54] LABS: PLATELET COUNT 143 10x3/uL (130-400); WBC 6.2 10x3/uL (4.8-10.8)
[2018-07-26 07:15] LABS: CARBON DIOXIDE 25.3 mmol/L (21.0-32.0); CHLORIDE - SERUM 106 mmol/L (98-107); GLUCOSE 92 mg/dL (74-106); POTASSIUM - SERUM 3.6 mmol/L (3.5-5.1); SODIUM 138 mmol/L (136-145)
[2018-07-26 07:16] LABS: CALC OSMOLALITY 274 mosm/kg (275-300); CREATININE - SERUM 0.8 mg/dL (0.6-1.3); UREA NITROGEN 11 mg/dL (7-18); eGFR NON AFRICAN AMERICAN > 90 mL/min (90-120)
--- NOTE | 2018-07-26 07:36 | NUR ---
RESUMING PT CARE, PT IS SITTING UP IN BED AND IS ALERT AND ORIENTED X4, CALL LIGHT IN REACH. WILL CONTINUE TO MONITOR AND FOLLOW PLAN OF CARE.
--- NOTE | 2018-07-26 09:44 | NUR ---
I have reviewed this patient and I concur with the Shift Assessment completed by the Licensed Practical Nurse today this shift.
[2018-07-26 09:45] VITALS: BP 158/81
[2018-07-26 14:27] VITALS: Ht 172.7 cm; Wt 79.4 kg
--- NOTE | 2018-07-26 15:29 | NUR ---
ORTHOSTATIC VITALS: LYING 175/93, 76, SITTING 187/99, 80, STANDING 149/85, 79.
--- NOTE | 2018-07-26 15:33 | NUR ---
ORTHOSTATIC VITALS: LYIN/93, 76, 20, O2 97% SITTIN/99, 80, 18, 97% STANDIN/85, 79, 20, 97%
[2018-07-26 15:52] VITALS: BP 158/75
--- NOTE | 2018-07-26 17:43 | NUR ---
IV REMOVED, D/C ORDERS GIVEN AND PT TAKEN TO CAR VIA WHEELCHAIR
--- NOTE | 2018-07-27 11:34 | MORECARE ---
CASE MANAGEMENT DISCHARGE SUMMARY PATIENT: STACY QUESADA UNIT: [id number] ADM DATE: 07/25/18 AGE: 72 : [birth year] SEX: M ROOM/BED: D.2133 AUTHOR: JANESSA VASQUES PHYSICIAN: REFERRING PHYSICIAN: DOMITILA CURTIS MD DATE OF SERVICE: 07/27/18 Discharge Plan Patient Name: STACY QUESADA Facility: [facility]:[place] : 1945 Planned Disposition: Home Anticipated Discharge Date: 07/26/18 Discharge Date: 07/26/2018 Expected LOS: 1 Initial Reviewer: [email or web address] Initial Review Date: 07/27/2018 Generated: 07/27/18 12:33 pm Coverage Notice Reviewer: [email or web address] Gage Ventura Notice Issued Date-Time: 07/26/2018 16:32 Notice Type: Medicare Outpatient Observation Notice Notice Delivered To: Patient Relationship to Patient: Self [employer] Processor Name: Delivery Method: HAND - Hand Delivered Liliya Days: Prior Verbal Notification: Recipient Understood Notice: Yes Recipient Signature: Yes Med Rec Note Co-signed by Attending: Coverage Notice Comment: SPOKE WITH PATIENT AND HIS , DREW, AFTER VERBAL PERMISSION OBTAINED. Patient Name: STACY QUESADA Page [phone] at 1134 All edits/amendments must be made on the electronic document DICTATION DATE: 07/27/18 1133 BALLPOINT PENS ASSEMBLER: ARETHA 07/27/18 1133 RPT#: [id number] DC DATE:07/26/18 STATUS: DIS IN [place] [id number] [place] [address] END OF REPORT
== END 2018-07-26 17:44 | disposition home or self-care (01) ==
LOC: D.ER 02:58 → D.EDHOLD 06:03 → OBSVTIME 06:03 → D.M2 14:12
PROVIDERS: Family Medicine; ADMIT Internal Medicine Nephrology; ATTEND Internal Medicine Nephrology
DX: I95.1 Orthostatic hypotension (principal); I10 Essential (primary) hypertension; E78.5 Hyperlipidemia, unspecified; I25.10 Atherosclerotic heart disease of native coronary artery without angina pectoris; N40.0 Benign prostatic hyperplasia without lower urinary tract symptoms; G40.909 Epilepsy, unspecified, not intractable, without status epilepticus; F17.203 Nicotine dependence unspecified, with withdrawal; K26.9 Duodenal ulcer, unspecified as acute or chronic, without hemorrhage or perforation; R00.1 Bradycardia, unspecified; I48.0 Paroxysmal atrial fibrillation; N17.9 Acute kidney failure, unspecified; E87.1 Hypo-osmolality and hyponatremia

== ENCOUNTER 2018-09-25 08:24 | Outpatient (CLI) | payer MEDICARE, OTHER ==
[~2018-09-25 08:24] MED LIST changes: +HYDROCHLOROTHIAZIDE PO; +LOSARTAN PO; +PROSCAR5 MG PO
[2018-09-25 09:48] VITALS: BMI 27.4
== END 2018-09-25 11:25 | disposition home or self-care (01) ==
LOC: D.OPS 08:24
PROVIDERS: ATTEND Internal Medicine Cardiovascular Disease
DX: Z95.2 Presence of prosthetic heart valve (principal)

== ENCOUNTER → 2018-10-27 10:01 | Outpatient (CLI) | payer MEDICARE, OTHER ==
--- NOTE | 2018-11-01 14:03 | EC ---
PATIENT:STACY QUESADA DATE OF SERVICE: 10/27/18 SEX: M MEDICAL RECORD: [id number] DATE OF : [birth year] LOCATION:[facility] AGE OF PATIENT: 72 ADMISSION DATE: 10/27/18 REFERRING PHYSICIAN: INTERPRETING PHYSICIAN: JEANNINE HARRINGTON MD ECHOCARDIOGRAM REPORT ECHO CHARGES 4 ECHO COMPLETE Date: 10/27/18 CLINICAL DIAGNOSIS: AVR/SYNCOPE H/O HTN/CAD/CABG ECHOCARDIOGRAPHIC MEASUREMENTS (adult normal given) AC root (d.<3.7cm) 3.3 cm LV Septum d (<1.2 cm> 1.4 cm Valve Excursion 1.7 cm LV Septum (systole) 1.8 cm Left Atria (s.<4.0cm> 4.7 cm LVPW d(<1.2cm) 1.3 cm RV (d.<2.3cm) 2.6 cm LVPW (sytole) 1.5 cm LV diastole(<5.6CM) 5.9 cm MV E-F(>70mm/sec) cm LV systole 4.5 cm LVOT Diameter 1.7 cm MV exc.(>10mm) cm Est.ejection fraction (50-75%) % DOPPLER: LVIT cm/sec A 45.0 cm/sec E 97.0 cm/sec LA cm/sec RVSP 32.0 mmHg LVOT 93.0 cm/sec AOP1/2T m/s Asc. Ao 194 cm/sec RVOT 44.0 cm/sec RA cm/sec PA 76.0 cm/sec AV Gradient Peak 15.1 mmHg AV Mean 7.9 mmHg AV Area 1.1 cm MV Gradient Peak 4.7 mmHg MV Mean 1.5 mmHg MV Area cm COMMENTS: OP - HC Supervisor [employer] [address]: 1 FELI MACK Ski Patrol Director: 3 Dr. Goodman TAPE# PACS Pericardial Effusion N DATE OF SERVICE: Adequate 2D, color flow, spectral Doppler, and M-Mode. LVH is present. LV internal dimensions are normal. Wall motion is normal. EF is greater than or equal to 55%. Tissue prosthetic aortic valve is noted with acceptable Doppler velocity and trivial AI only. Left atrium is dilated at 4.7 cm. Mitral valve shows no prolapse. [id number] MR. Right-sided chambers grossly normal. Mild TR. TRANSINT:[id number] Voice Confirmation ID: [id number] DOCUMENT ID: [id number] ECHOCARDIOGRAM REPORT [id number] STACY QUESADA,JEANNINE Cloud MD at 1403 CC: [id number] DICTATION DATE: 10/30/18 1341 ENVIRONMENTAL TECHNICIAN: 10/30/18 1352 DEP CLI 10/27/18 [place] [id number] [place] [id number]
== END | disposition home or self-care (01) ==
LOC: D.HCCARDIO 10:00
PROVIDERS: ATTEND Internal Medicine Interventional Cardiology
DX: I25.10 Atherosclerotic heart disease of native coronary artery without angina pectoris (principal)

== ENCOUNTER 2019-04-02 07:57 | Outpatient (CLI) | payer MEDICARE, OTHER ==
[~2019-04-02] VITALS: Ht 182.9 cm; Wt 86.8 kg
--- NOTE | 2019-04-02 08:57 | NUR ---
0840-STARTED SALINE LOCK WITH 22G CATHETER TIMES ONE ATTEMPT.
[2019-04-02 09:01] VITALS: BP 131/74; Ht 182.9 cm; Wt 86.8 kg
--- NOTE | 2019-04-02 11:04 | NUR ---
1055 IV DC'D. CATHETER TIP INTACT. NO BLEEDING AT SITE. BANDAID APPLIED. PT DENIES ANY ITCHING, RASH OR WHELPS. TOLERATED ABX INFUSTIONS WITHOUT SIDE EFFECTS.
== END 2019-04-02 11:00 | disposition home or self-care (01) ==
LOC: D.OPS 07:57
PROVIDERS: ATTEND Internal Medicine Cardiovascular Disease
DX: Z95.5 Presence of coronary angioplasty implant and graft (principal)